=== PATIENT | male | born 1945 | race Caucasian/White ===

== ENCOUNTER 2018-01-08 01:25 | Emergency (ER) | payer OTHER ==
--- OUTSIDE RECORDS SUMMARY | 2018-01-08 01:29 | XMS REPORT | Clinical Summary ---
:1945 Author Organization [facility] Address [address] [place] [address] Care Team Providers Name Role Phone Kayla Chappell MD Primary Care Provider Allergies Active Allergy Reactions Severity Noted Date Comments Codeine Other (See Comments) 10/17/2016 Confusion, disorientation Current Medications Prescription Sig. Disp. Refills Start End Date Status Date melatonin 10 mg Take 1 capsule by Active capsule mouth nightly. etodolac (LODINE) Take 400 mg by Active 200 MG capsule mouth 2 (two) times a day. baclofen (LIORESAL) Take 20 mg by Active 20 MG tablet mouth 3 (three) times a day. oxybutynin Take 5 mg by Active (DITROPAN) 5 MG mouth 2 (two) tablet times a day. carvedilol (COREG) Take 12.5 mg by Active 12.5 MG tablet mouth 2 (two) times a day with meals. albuterol sulfate Inhale 2 puffs as Active 90 mcg/actuation needed. aerosol powdr breath activated lovastatin Take 40 mg by Active (MEVACOR) 40 MG mouth nightly. tablet budesonide-formoter Inhale 2 puffs 2 Active ol (SYMBICORT) (two) times a 160-4.5 day. mcg/actuation inhaler riluzole (RILUTEK) Take 50 mg by Active 50 mg tablet mouth every 12 (twelve) hours. POLYETHYLENE GLYCOL 1 oz. Every odd Active 3350 (MIRALAX ORAL) day gabapentin Take 300 mg by Active (NEURONTIN) 300 mg mouth 2 (two) capsule times a day. lidocaine Place 1-3 patches Active (LIDODERM) 5 % on the skin daily as needed for mild pain. Remove & Discard patch within 12 hours or as directed by DOCOSAHEXANOIC Take 1,000 mg by Active ACID/EPA (FISH OIL mouth daily. ORAL) amLODIPine Take 10 mg by Active (NORVASC) 10 mg mouth daily. tablet therapeutic Take 1 tablet by Active multivitamin mouth daily. (THERAGRAN) tablet folic acid Take 800 mcg by Active (FOLVITE) 800 MCG mouth 2 (two) tablet times a day. cyanocobalamin Take 1,000 mcg by Active (vitamin B-12) 1000 mouth daily. MCG tablet NAPROXEN Take 1 tablet by Active SODIUM/PSEUDOEPHEDR mouth nightly. IN (ALEVE-D SINUS AND COLD ORAL) omeprazole Take 20 mg by Active (PriLOSEC) 20 MG mouth daily. capsule VITAMIN B COMPLEX Take 1 tablet by Active (B COMPLEX ORAL) mouth daily. cholecalciferol, Take 1 tablet by Active vitamin D3, mouth daily. (VITAMIN D3) 5,000 unit tablet vitamin E 1000 UNIT Take 1,000 Units Active capsule by mouth 2 (two) times a day. ascorbic acid, Take 1,000 mg by Active vitamin C, (vitamin mouth 2 (two) C) 1000 MG tablet times a day. baclofen (LIORESAL) Take 20 mg by 03/10/20 Discontinued 20 MG tablet mouth 3 (three) 17 times a day. oxybutynin Take 5 mg by 03/10/20 Discontinued (DITROPAN) 5 MG mouth 2 (two) 17 tablet times a day. carvedilol (COREG) Take 6.25 mg by 03/10/20 Discontinued 6.25 MG tablet mouth 2 (two) 17 times a day with meals. albuterol (PROAIR Inhale 2 puffs 03/10/20 Discontinued HFA,PROVENTIL every 4 (four) 17 HFA,VENTOLIN HFA) hours as needed 90 mcg/actuation for wheezing or inhaler shortness of breath. lovastatin Take 40 mg by 03/10/20 Discontinued (MEVACOR) 40 MG mouth daily. 17 tablet budesonide-formoter Inhale 2 puffs 2 03/10/20 Discontinued ol (SYMBICORT) (two) times a 17 160-4.5 day. mcg/actuation inhaler riluzole (RILUTEK) Take 50 mg by 03/10/20 Discontinued 50 mg tablet mouth every 12 17 (twelve) hours. polyethylene glycol Take 17 g by 03/10/20 Discontinued (MIRALAX) 17 gram mouth every other 17 packet day. esomeprazole Take 1 capsule by 03/10/20 Discontinued magnesium 22.3 mg mouth daily. 17 capsule,delayed release(DR/EC) omega Take 1 capsule by 03/10/20 Discontinued [id number] oil mouth daily. 17 (FISH OIL) 1,000 mg (120 mg-180 mg) capsule multivitamin Take 1 tablet by 03/10/20 Discontinued (THERAGRAN) tablet mouth daily. 17 folic acid Take 800 mcg by 03/10/20 Discontinued (FOLVITE) 800 MCG mouth 2 (two) 17 tablet times a day. GLUC STOVER/CHONDRO STOVER Take 1 tablet by 03/10/20 Discontinued A/VIT C/MN mouth daily. 17 (GLUCOSAMINE 1500 COMPLEX ORAL) cyanocobalamin, Place 2,500 mcg 03/10/20 Discontinued vitamin B-12, 2,500 under the tongue 17 mcg tablet, daily. sublingual B COMPLEX WITH Take 1 tablet by 03/10/20 Discontinued VITAMIN C (SUPER mouth daily. 17 B/C ORAL) cholecalciferol, Take 1 tablet by 03/10/20 Discontinued vitamin D3, mouth daily. 17 (VITAMIN D3) 5,000 unit tablet vitamin E 1000 UNIT Take 1,000 Units 03/10/20 Discontinued capsule by mouth 2 (two) 17 times a day. ascorbic acid, Take 1,000 mg by 03/10/20 Discontinued vitamin C, (VITAMIN mouth 2 (two) 17 C) 1000 MG tablet times a day. sildenafil (VIAGRA) Take 100 mg by 03/10/20 Discontinued 100 MG tablet mouth as needed. 17 gabapentin Take 300 mg by 02/13/20 Discontinued (NEURONTIN) 300 mg mouth 2 (two) 17 capsule times a day. gabapentin Take 1 capsule 60 capsule 11 03/10/20 Discontinued (NEURONTIN) 300 mg (300 mg total) by 7 17 capsule mouth 2 (two) times a day. apixaban (ELIQUIS) Take 2.5 mg by 03/10/20 Discontinued 2.5 mg tablet mouth 2 (two) 17 times a day. carvedilol (COREG) Take 1 tablet 60 tablet 0 03/10/20 Discontinued 12.5 MG tablet (12.5 mg total) 7 17 by mouth 2 (two) times a day with meals for 30 days. riluzole (RILUTEK) Take 1 tablet (50 60 tablet 0 03/10/20 Discontinued 50 mg tablet mg total) by 7 17 mouth every 12 (twelve) hours for 30 days. gabapentin Take 1 capsule 60 capsule 0 03/10/20 Discontinued (NEURONTIN) 300 mg (300 mg total) by 7 17 capsule mouth 2 (two) times a day for 30 days. simvastatin (ZOCOR) Take 1 tablet (20 30 tablet 0 03/10/20 Discontinued 20 MG tablet mg total) by 7 17 mouth nightly for 30 days. albuterol (ACCUNEB) Take 3 mL (2.5 mg 75 mL 12 03/10/20 Discontinued 2.5 mg /3 mL (0.083 total) by 7 17 %) nebulizer nebulization solution every 4 (four) hours as needed for wheezing or shortness of breath for up to 30 days. fluticasone-vilante Inhale 1 30 each 0 03/10/20 Discontinued rol (BREO ELLIPTA) inhalations once 17 200-25 mcg/dose daily for 30 blister with device days. powder for inhalation amLODIPine Take 1 tablet (10 30 tablet 0 03/10/20 Discontinued (NORVASC) 10 mg mg total) by 7 17 tablet mouth daily for 30 days. folic acid Take 1 tablet 30 tablet 0 03/10/20 Discontinued (FOLVITE) 800 MCG (800 mcg total) 7 17 tablet by mouth daily for 30 days. docusate sodium Take 1 capsule 60 capsule 0 03/10/20 Discontinued (COLACE) 100 MG (100 mg total) by 7 17 capsule mouth 2 (two) times a day for 30 days. polyethylene glycol Take 17 g by 15 packet 0 04/08/20 (MIRALAX) 17 gram mouth every other 7 17 packet day for 30 days. senna (SENOKOT) 8.6 Take 2 tablets by 60 tablet 0 03/10/20 Discontinued mg tablet mouth daily with 7 17 lunch for 30 days. omega-3 acid ethyl Take 1 capsule (1 30 capsule 0 04/08/20 esters (LOVAZA) 1 g total) by mouth 7 17 gram capsule daily for 30 days. B-complex with Take 1 tablet by 30 tablet 0 04/08/20 vitamin C (ALLBEE mouth daily for 12 29 C-800) tablet 30 days. multivitamin Take 1 tablet by 30 tablet 0 04/08/20 (THERAGRAN) tablet mouth daily for 17 30 days. pantoprazole Take 40 mg by 1200 mg 0 03/10/20 Discontinued (PROTONIX) 40 mg mouth daily for [address] for 30 days. susp in packet baclofen (LIORESAL) Take 1 tablet (20 90 tablet 0 04/08/20 20 MG tablet mg total) by 12 29 mouth 3 (three) times a day for 30 days. oxybutynin Take 1 tablet (5 60 tablet 0 03/10/20 Discontinued (DITROPAN) 5 MG mg total) by 7 17 tablet mouth 2 (two) times a day for 30 days. cyanocobalamin, Place 1 tablet 30 tablet 0 04/08/20 vitamin B-12, 2,500 (2,500 mcg total) 7 17 mcg tablet, under the tongue sublingual daily for 30 days. ascorbic acid, Take 1 tablet 60 tablet 0 04/08/20 vitamin C, (VITAMIN (1,000 mg total) 12 29 C) 1000 MG tablet by mouth 2 (two) times a day for 30 days. cholecalciferol, Take 1 capsule 30 capsule 0 04/08/20 vitamin D3, (2,000 Units 12 29 (VITAMIN D3) 2,000 total) by mouth unit capsule daily for 30 capsule days. vitamin E 1000 UNIT Take 1 capsule 60 capsule 0 04/08/20 capsule (1,000 Units 12 29 total) by mouth 2 (two) times a day for 30 days. albuterol (PROAIR Inhale 2 puffs 18 g 11 04/09/20 HFA,PROVENTIL every 4 (four) 7 17 HFA,VENTOLIN HFA) hours as needed 90 mcg/actuation for wheezing or inhaler shortness of breath for up to 30 days. apixaban (ELIQUIS) Take 1 tablet 60 tablet 0 04/12/20 2.5 mg tablet (2.5 mg total) by 7 17 mouth 2 (two) times a day for 30 days. carvedilol (COREG) Take 1 tablet 60 tablet 0 04/09/20 12.5 MG tablet (12.5 mg total) 7 17 by mouth 2 (two) times a day with meals for 30 days. riluzole (RILUTEK) Take 1 tablet (50 60 tablet 0 04/09/20 50 mg tablet mg total) by 7 17 mouth every 12 (twelve) hours for 30 days. gabapentin Take 1 capsule 60 capsule 0 04/09/20 (NEURONTIN) 300 mg (300 mg total) by 7 17 capsule mouth 2 (two) times a day for 30 days. simvastatin (ZOCOR) Take 1 tablet (20 30 tablet 0 04/09/20 20 MG tablet mg total) by 7 17 mouth nightly for 30 days. fluticasone-vilante Inhale 1 30 each 0 04/09/20 rol (BREO ELLIPTA) inhalations once 7 17 200-25 mcg/dose daily for 30 blister with device days. powder for inhalation amLODIPine Take 1 tablet (10 30 tablet 0 04/09/20 (NORVASC) 10 mg mg total) by 7 17 tablet mouth daily for 30 days. folic acid Take 1 tablet 30 tablet 0 04/09/20 (FOLVITE) 800 MCG (800 mcg total) 7 17 tablet by mouth daily for 30 days. docusate sodium Take 1 capsule 60 capsule 0 04/09/20 (COLACE) 100 MG (100 mg total) by 7 17 capsule mouth 2 (two) times a day for 30 days. senna (SENOKOT) 8.6 Take 2 tablets by 60 tablet 0 04/09/20 mg tablet mouth daily with 7 17 lunch for 30 days. pantoprazole Take 40 mg by 1200 mg 0 04/09/20 (PROTONIX) 40 mg mouth daily for [address] for 30 days. susp in packet oxybutynin Take 1 tablet (5 60 tablet 0 04/09/20 (DITROPAN) 5 MG mg total) by 7 17 tablet mouth 2 (two) times a day for 30 days. levoFLOXacin Take 1 tablet 3 tablet 0 10/06/19 (LEVAQUIN) 750 MG (750 mg total) by 8 18 tablet mouth daily for 3 days. Active Problems Problem Noted Date Pneumonia of left lung due to infectious organism 09/27/2017 Stroke 02/25/2017 ALS (amyotrophic lateral sclerosis) 02/25/2017 Cerebrovascular accident (CVA) 02/20/2017 Chronic respiratory insufficiency 10/06/2016 Overview: On AVAPs Diaphragm paralysis 10/06/2016 Acute bilateral low back pain without sciatica 09/19/2016 Disorientation 09/16/2016 Generalized weakness 09/15/2016 Amyotrophic lateral sclerosis 03/20/2016 Encounters Date Type Specialty Care Team Description Procedure Pass Gastroenterology 8 Hospital Encounter Access Angella Rojas MD Anesthesia Event Gastroenterology Dhother, 8 Partha Garvin MD Telephone Neurology Angella Brandon RN Documentation Neurology Ta, medicine 8 Kayla Escobedo MD Telephone Neurology Angella Brandon RN Lab Lab Marciano Stuart ALS (amyotrophic 8 HMD Susan lateral sclerosis) Multidisciplinary Neurology Ta ALS (amyotrophic lateral sclerosis); 8 Visit Kayla Escobedo MD Chronic respiratory insufficiency Sobia Euceda RN Orders Only Neurology JACI Euceda (amyotrophic Angella Ramsay RN lateral sclerosis) (Primary Dx) Telephone Neurology Angella Brandon RN Patient Outreach Quality Stefany Pettit RN Patient Outreach Quality Angella Bernal RN Hospital Encounter General Internal Boyareddigari, Pneumonia of left lung due to infectious organism, unspecified part of lung (Primary Dx); 8 - Medicine Willy Sadler, Shortness of breath; ALS (amyotrophic lateral sclerosis) 8 Conor Stoll MD Telephone Neurology Roma, 8 KHALIF Stapleton Telephone Neurology Roma, 8 KHALIF Stapleton Lab Lab Marciano Stuart Amyotrophic lateral 8 MD Lamont sclerosis Multidisciplinary Neurology Rahat Chester Cerebrovascular accident (CVA) due to other mechanism (Primary Dx); 8 Visit MD Mookie Chronic respiratory insufficiency; Marciano Stuart Amyotrophic lateral sclerosis; MD Lamont Generalized weakness; Toennis, Diaphragm paralysis KHALIF Ramsay Orders Only Neurology Toecharlee, Amyotrophic lateral 7 KHALIF Ramsay sclerosis (Primary Dx) Telephone Neurology Roma, 7 KHALIF Stapleton Telephone Neurology Roma, 7 KHALIF Stapleton Telephone Neurology [place], 7 KHALIF Stapleton Patient Outreach Quality Ирина Gomez RN Hospital Encounter Rehabilitation [facility]ad[facility] De La Fuente Acute bilateral low Ирина James MD back pain without Destiney Marshall sciatica (Primary 7 DMD Susan Dx) Hospital Encounter General Internal Rehrer, [place] Cerebrovascular accident (CVA), unspecified mechanism (Primary Dx); 7 - Medicine Mitch, Respiratory insufficiency; Kylah Gomez Amyotrophic lateral sclerosis Ирина Toth MD Procedure Pass General Internal 7 Medicine Telephone Neurology Ирина Euceda RN Orders Only Neurology ChanelnnИрина linda RN Orders Only Neurology Toennis, Amyotrophic lateral 7 KHALIF Ramsay sclerosis (Primary Dx) after 01/07/2017 Immunizations Name Dates Previously Given Next Due FLUCELVAX QUAD PF (0.5mL syringe) 02/23/2017 Family History Medical History Relation Name Comments Suicidality Brother committed suicide at 52 Cancer Mother skin cancer complications in her 70's Diabetes Mother Relation Name Status Comments Brother Father (Age 58) family history unkown Mother (Age 75) Social History Tobacco Use Types Packs/Day Years Used Date Former Smoker Cigarettes 1 20 1966 - 1986 Smokeless Tobacco: Never Used Alcohol Use Drinks/Week oz/Week Comments Yes 2-3 Glasses of wine 2.4 - 3.6 2-3 Cans of beer Sex Assigned at Date Recorded Not on file Last Filed Vital Signs Vital Sign Reading Time Taken Blood Pressure 120/80 10/16/2017 8:57 AM CDT Pulse 64 10/16/2017 8:57 AM CDT Temperature 36.4 C (97.5 F) 10/16/2017 8:57 AM CDT Respiratory Rate 12 10/16/2017 8:57 AM CDT Oxygen Saturation 94% 10/01/2017 11:35 AM CDT Inhaled Oxygen Concentration - - Weight 78.3 kg (172 lb 9.6 oz) 06/19/2017 9:22 AM HEEL DIPPER Height 177.8 cm (5' 10") 10/16/2017 8:57 AM CDT Body Mass Index 24.77 06/19/2017 9:22 AM HEEL DIPPER Plan of Treatment Date Type Specialty Care Team Description 02/19/2018 Multidisciplinary Visit Neurology Sobia Euceda, KHALIF Health Maintenance Due Date Last Done Comments COLON CANCER SCREENING 1995 SHINGRIX VACCINE (#1) 1995 ZOSTER VACCINE 2005 PNEUMOCOCCAL POLYSACCHARIDE VACCINE AGE 65 2010 AND OVER PNEUMOCOCCAL-13 2010 INFLUENZA VACCINE 01/13/2018 02/23/2017, 04/15/2015 Procedures Procedure Name Priority Date/Time Associated Comments Diagnosis HEPATIC FUNCTION PANEL Routine 10/16/2017 7:30 ALS (amyotrophic Results for this AM CDT lateral sclerosis) procedure are in the results section. XR CHEST 1 VW PORTABLE Routine 09/30/2017 3:57 Results for this PM CDT procedure are in the results section. XR ABDOMEN 1 VW Routine 09/29/2017 8:22 Results for this PM CDT procedure are in the results section. HC COMPLETE BLD COUNT Routine 09/29/2017 5:20 Results for this W/AUTO DIFF AM CDT procedure are in the results section. ESTIMATED GFR Routine 09/29/2017 4:00 Results for this AM CDT procedure are in the results section. BASIC METABOLIC PANEL Routine 09/29/2017 4:00 Results for this AM CDT procedure are in the results section. US DUPLEX VENOUS LOWER Routine 09/28/2017 10:45 Results for this EXTREMITY BILATERAL AM CDT procedure are in the results section. URINALYSIS SCREEN AND STAT 09/27/2017 10:50 Results for this MICROSCOPY, WITH REFLEX PM CDT procedure are in TO CULTURE the results section. URINE CULTURE STAT 09/27/2017 10:50 Results for this PM CDT procedure are in the results section. RESPIRATORY PATHOGEN Routine 09/27/2017 4:25 Results for this PANEL PM CDT procedure are in the results section. TROPONIN Timed 09/27/2017 3:30 Results for this PM CDT procedure are in the results section. LACTIC ACID LEVEL, Timed 09/27/2017 3:30 Results for this SEPSIS - NOW AND REPEAT PM CDT procedure are in 2X EVERY 3 HOURS the results section. BLOOD CULTURE, AEROBIC Routine 09/27/2017 1:45 Results for this & ANAEROBIC PM CDT procedure are in the results section. BLOOD CULTURE, AEROBIC Routine 09/27/2017 1:40 Results for this & ANAEROBIC PM CDT procedure are in the results section. CT ABDOMEN PELVIS W STAT 09/27/2017 1:30 Results for this CONTRAST PM CDT procedure are in the results section. XR ABDOMEN 1 VW STAT 09/27/2017 12:18 Results for this PORTABLE PM CDT procedure are in the results section. XR CHEST 1 VW PORTABLE STAT 09/27/2017 12:17 Results for this PM CDT procedure are in the results section. NE CRITICAL CARE, E/M Routine 09/27/2017 12:01 Results for this 30-74 MINUTES PM CDT procedure are in the results section. TROPONIN STAT 09/27/2017 11:07 Results for this AM CDT procedure are in the results section. B NATRIURETIC PEPTIDE STAT 09/27/2017 11:07 Results for this AM CDT procedure are in the results section. ESTIMATED GFR STAT 09/27/2017 11:07 Results for this AM CDT procedure are in the results section. LACTIC ACID LEVEL, STAT 09/27/2017 11:07 Results for this SEPSIS - NOW AND REPEAT AM CDT procedure are in 2X EVERY 3 HOURS the results section. LIPASE LEVEL STAT 09/27/2017 11:07 Results for this AM CDT procedure are in the results section. COMPREHENSIVE METABOLIC STAT 09/27/2017 11:07 Results for this PANEL AM CDT procedure are in the results section. HC COMPLETE BLD COUNT STAT 09/27/2017 11:07 Results for this W/AUTO DIFF AM CDT procedure are in the results section. HEPATIC FUNCTION PANEL Routine 06/19/2017 8:28 Amyotrophic lateral Results for this AM HEEL DIPPER sclerosis procedure are in the results section. HC COMPLETE BLD COUNT Routine 06/19/2017 8:28 Amyotrophic lateral Results for this W/AUTO DIFF AM HEEL DIPPER sclerosis procedure are in the results section. ESTIMATED GFR Routine 03/01/2017 4:00 Results for this AM CDT procedure are in the results section. BASIC METABOLIC PANEL Routine 03/01/2017 4:00 Results for this AM CDT procedure are in the results section. ESTIMATED GFR Routine 02/28/2017 4:50 Results for this AM CDT procedure are in the results section. HC COMPLETE BLD COUNT Routine 02/28/2017 4:50 Results for this W/AUTO DIFF AM CDT procedure are in the results section. BASIC METABOLIC PANEL Routine 02/28/2017 4:50 Results for this AM CDT procedure are in the results section. POC GLUCOSE Routine 02/27/2017 6:52 Results for this AM CDT procedure are in the results section. POC GLUCOSE Routine 02/26/2017 8:44 Results for this PM CDT procedure are in the results section. POC GLUCOSE Routine 02/26/2017 5:14 Results for this PM CDT procedure are in the results section. POC GLUCOSE Routine 02/26/2017 11:20 Results for this AM CDT procedure are in the results section. URINALYSIS, AUTOMATED Routine 02/26/2017 6:45 Results for this WITH MICROSCOPY AM CDT procedure are in the results section. HEMOGLOBIN A1C Routine 02/26/2017 6:00 Results for this AM CDT procedure are in the results section. HC COMPLETE BLD COUNT Routine 02/26/2017 6:00 Results for this W/AUTO DIFF AM CDT procedure are in the results section. ESTIMATED GFR Routine 02/25/2017 7:17 Results for this PM CDT procedure are in the results section. PREALBUMIN LEVEL Routine 02/25/2017 7:17 Results for this PM CDT procedure are in the results section. PHOSPHORUS LEVEL Routine 02/25/2017 7:17 Results for this PM CDT procedure are in the results section. MAGNESIUM LEVEL Routine 02/25/2017 7:17 Results for this PM CDT procedure are in the results section. COMPREHENSIVE METABOLIC Routine 02/25/2017 7:17 Results for this PANEL PM CDT procedure are in the results section. POC GLUCOSE Routine 02/23/2017 4:53 Results for this PM CDT procedure are in the results section. POC GLUCOSE Routine 02/23/2017 12:23 Results for this PM CDT procedure are in the results section. POC GLUCOSE Routine 02/23/2017 8:06 Results for this AM CDT procedure are in the results section. POC GLUCOSE Routine 02/23/2017 5:00 Results for this AM CDT procedure are in the results section. ESTIMATED GFR Routine 02/23/2017 4:00 Results for this AM CDT procedure are in the results section. BASIC METABOLIC PANEL Routine 02/23/2017 4:00 Results for this AM CDT procedure are in the results section. HC COMPLETE BLD COUNT Routine 02/23/2017 3:45 Results for this W/AUTO DIFF AM CDT procedure are in the results section. POC GLUCOSE Routine 02/23/2017 12:41 Results for this AM CDT procedure are in the results section. POC GLUCOSE Routine 02/22/2017 8:23 Results for this PM CDT procedure are in the results section. POC GLUCOSE Routine 02/22/2017 4:27 Results for this PM CDT procedure are in the results section. POC GLUCOSE Routine 02/22/2017 12:04 Results for this PM CDT procedure are in the results section. POC GLUCOSE Routine 02/22/2017 8:28 Results for this AM CDT procedure are in the results section. POC GLUCOSE Routine 02/22/2017 4:13 Results for this AM CDT procedure are in the results section. ESTIMATED GFR Routine 02/22/2017 3:28 Results for this AM CDT procedure are in the results section. BASIC METABOLIC PANEL Routine 02/22/2017 3:28 Results for this AM CDT procedure are in the results section. CBC WITH PLATELET AND Routine 02/22/2017 3:10 Results for this DIFFERENTIAL AM CDT procedure are in the results section. POC GLUCOSE Routine 02/22/2017 12:14 Results for this AM CDT procedure are in the results section. POC GLUCOSE Routine 02/21/2017 8:23 Results for this PM CDT procedure are in the results section. MRI BRAIN W WO CONTRAST STAT 02/21/2017 6:47 Results for this PM CDT procedure are in the results section. CT HEAD WO CONTRAST STAT 02/21/2017 1:49 Results for this PM CDT procedure are in the results section. ECG ED PRELIMINARY Routine 02/21/2017 1:46 Results for this INTERPRETATION PM CDT procedure are in the results section. NE CRITICAL CARE, E/M Routine 02/21/2017 1:46 Results for this 30-74 MINUTES PM CDT procedure are in the results section. VITAMIN B12 LEVEL STAT 02/21/2017 10:14 Results for this AM CDT procedure are in the results section. LIPID PANEL STAT 02/21/2017 10:14 Results for this AM CDT procedure are in the results section. HOMOCYSTINE, PLASMA STAT 02/21/2017 10:14 Results for this AM CDT procedure are in the results section. HIV 1, 2 ANTIBODY STAT 02/21/2017 10:14 Results for this AM CDT procedure are in the results section. THYROID STIMULATING STAT 02/21/2017 10:14 Results for this HORMONE AM CDT procedure are in the results section. SEDIMENTATION RATE STAT 02/21/2017 10:14 Results for this AM CDT procedure are in the results section. RHEUMATOID FACTOR STAT 02/21/2017 10:14 Results for this AM CDT procedure are in the results section. C-REACTIVE PROTEIN STAT 02/21/2017 10:14 Results for this AM CDT procedure are in the results section. ESTIMATED GFR Routine 02/21/2017 5:14 Results for this AM CDT procedure are in the results section. BASIC METABOLIC PANEL Routine 02/21/2017 5:14 Results for this AM CDT procedure are in the results section. HC COMPLETE BLD COUNT Routine 02/21/2017 5:14 Results for this W/AUTO DIFF AM CDT procedure are in the results section. LACTIC ACID LEVEL Timed 02/20/2017 10:30 Results for this PM CDT procedure are in the results section. TROPONIN Timed 02/20/2017 10:30 Results for this PM CDT procedure are in the results section. CT ANGIOGRAM HEAD W WO STAT 02/20/2017 8:31 Results for this CONTRAST PM CDT procedure are in the results section. CT ANGIOGRAM NECK W WO STAT 02/20/2017 8:30 Results for this CONTRAST PM CDT procedure are in the results section. CT HEAD WO CONTRAST STAT 02/20/2017 5:06 Results for this PM CDT procedure are in the results section. ARTERIAL BLOOD GAS STAT 02/20/2017 4:25 Results for this PM CDT procedure are in the results section. XR CHEST 1 VW PORTABLE STAT 02/20/2017 4:22 Results for this PM CDT procedure are in the results section. BLOOD CULTURE, AEROBIC Routine 02/20/2017 3:40 Results for this & ANAEROBIC PM CDT procedure are in the results section. ECG 12-LEAD STAT 02/20/2017 3:23 Results for this PM CDT procedure are in the results section. ESTIMATED GFR STAT 02/20/2017 3:06 Results for this PM CDT procedure are in the results section. B NATRIURETIC PEPTIDE STAT 02/20/2017 3:06 Results for this PM CDT procedure are in the results section. TROPONIN STAT 02/20/2017 3:06 Results for this PM CDT procedure are in the results section. CREATINE KINASE, TOTAL STAT 02/20/2017 3:06 Results for this (CPK) PM CDT procedure are in the results section. LACTIC ACID LEVEL STAT 02/20/2017 3:06 Results for this PM CDT procedure are in the results section. MAGNESIUM LEVEL STAT 02/20/2017 3:06 Results for this PM CDT procedure are in the results section. PHOSPHORUS LEVEL STAT 02/20/2017 3:06 Results for this PM CDT procedure are in the results section. HEPATIC FUNCTION PANEL STAT 02/20/2017 3:06 Results for this PM CDT procedure are in the results section. BASIC METABOLIC PANEL STAT 02/20/2017 3:06 Results for this PM CDT procedure are in the results section. PARTIAL THROMBOPLASTIN STAT 02/20/2017 3:06 Results for this TIME (PTT) PM CDT procedure are in the results section. PROTHROMBIN TIME WITH STAT 02/20/2017 3:06 Results for this INR PM CDT procedure are in the results section. HC COMPLETE BLD COUNT STAT 02/20/2017 3:06 Results for this W/AUTO DIFF PM CDT procedure are in the results section. BLOOD CULTURE, AEROBIC Routine 02/20/2017 3:06 Results for this & ANAEROBIC PM CDT procedure are in the results section. URINALYSIS SCREEN AND STAT 02/20/2017 2:54 Results for this MICROSCOPY, WITH REFLEX PM CDT procedure are in TO CULTURE the results section. URINE CULTURE STAT 02/20/2017 1:15 Results for this PM CDT procedure are in the results section. after 01/07/2017 Results Hepatic function panel (10/16/2017 7:30 AM)Only the most recent of3 resultswithin the time period is included. Albumin 3.9 3.5 - 5.0 g/dL [facility] DEPARTMENT OF PATHOLOGY AND GENOMIC MEDICINE Total bilirubin 0.8 0.0 - 1.2 mg/dL [facility] DEPARTMENT OF PATHOLOGY AND GENOMIC MEDICINE Bilirubin direct <0.2 0.0 - 0.3 mg/dL [facility] DEPARTMENT OF PATHOLOGY AND GENOMIC MEDICINE Alkaline phosphatase 51 40 - 129 U/L [facility] DEPARTMENT OF PATHOLOGY AND GENOMIC MEDICINE Protein 7.6 6.3 - 8.3 g/dL [facility] DEPARTMENT OF Comment: PATHOLOGY AND GENOMIC [place] 4.6-7.0 g/dL MEDICINE 1 week 4.4-7.6 g/dL 7 months-1year5.1-7.3 g/dL 1-2 years5.6-7.5 g/dL >3 years6.0-8.0 g/dL 18-150 6.3-8.3 g/dL ALT 22 5 - 50 U/L [facility] DEPARTMENT OF PATHOLOGY AND GENOMIC MEDICINE AST 26 10 - 50 U/L [facility] DEPARTMENT OF PATHOLOGY AND GENOMIC MEDICINE Specimen Plasma specimen Performing Organization Address City/[facility] Phone Number [facility] DEPARTMENT OF PATHOLOGY AND [address] [place] [address] XR Chest 1 Vw Portable (09/30/2017 3:57 PM)Only the most recent of3 resultswithin the time period is included. Narrative Performed At EXAMINATION:XR CHEST 1 VW PORTABLE [facility] CLINICAL HISTORY:pneumonia COMPARISON:September 27, 2017 IMPRESSION: Basilar subsegmental atelectasis similar to prior. Right hemidiaphragm is mildly elevated. No confluent consolidation, significant pleural effusion, or pneumothorax. Stable cardiomediastinal silhouette. No significant change. [id number] Procedure Note Interface, Radiology Results Incoming - 09/30/2017 4:07 PM CDT EXAMINATION: XR CHEST 1 VW PORTABLE CLINICAL HISTORY: pneumonia COMPARISON: September 27, 2017 IMPRESSION: Basilar subsegmental atelectasis similar to prior. Right hemidiaphragm is mildly elevated. No confluent consolidation, significant pleural effusion, or pneumothorax. Stable cardiomediastinal silhouette. No significant change. [id number] Performing Organization Address City/State/Zipcode Phone Number [facility] [address] [place] [address] XR Abdomen 1 Vw (09/29/2017 8:22 PM) Narrative Performed At EXAMINATION:XR ABDOMEN 1 VW [facility] CLINICAL HISTORY:Bowel ileus COMPARISON:September 27, 2017 IMPRESSION: Improved/resolved colonic distention. Minimal nonspecific gaseous distention of small bowel. Findings suggest improving ileus. No evidence of pneumoperitoneum. Moderate to large stool burden. [facility]-[id number] Procedure Note Hm Interface, Radiology Results Incoming - 09/29/2017 9:05 PM CDT EXAMINATION: XR ABDOMEN 1 VW CLINICAL HISTORY: Bowel ileus COMPARISON: September 27, 2017 IMPRESSION: Improved/resolved colonic distention. Minimal nonspecific gaseous distention of small bowel. Findings suggest improving ileus. No evidence of pneumoperitoneum. Moderate to large stool burden. [facility]-[id number] Performing Organization Address City/State/Zipcode Phone Number [facility] [address] [place] [address] CBC with platelet and differential (09/29/2017 5:20 AM)Only the most recent of9 resultswithin the time period is included. WBC 9.88 4.50 - 11.00 k/uL [facility] DEPARTMENT OF PATHOLOGY AND GENOMIC MEDICINE RBC 3.15 (L) 4.40 - 6.00 m/uL [facility] DEPARTMENT OF PATHOLOGY AND GENOMIC MEDICINE HGB 9.9 (L) 14.0 - 18.0 g/dL [facility] DEPARTMENT OF PATHOLOGY AND GENOMIC MEDICINE HCT 31.8 (L) 41.0 - 51.0 % [facility] DEPARTMENT OF PATHOLOGY AND GENOMIC MEDICINE MCV 101.0 (H) 82.0 - 100.0 fL [facility] DEPARTMENT OF PATHOLOGY AND GENOMIC MEDICINE MCH 31.4 27.0 - 34.0 pg [facility] DEPARTMENT OF PATHOLOGY AND GENOMIC MEDICINE MCHC 31.1 31.0 - 37.0 g/dL [facility] DEPARTMENT OF PATHOLOGY AND GENOMIC MEDICINE RDW - SD 45.0 37.0 - 55.0 fL [facility] DEPARTMENT OF PATHOLOGY AND GENOMIC MEDICINE MPV 11.2 8.8 - 13.2 fL [facility] DEPARTMENT OF PATHOLOGY AND GENOMIC MEDICINE Platelet count 139 (L) 150 - 400 k/uL [facility] DEPARTMENT OF PATHOLOGY AND GENOMIC MEDICINE Nucleated RBC 0.00 /100 WBC [facility] DEPARTMENT OF PATHOLOGY AND GENOMIC MEDICINE Neutrophils 77.1 (H) 39.0 - 69.0 % [facility] DEPARTMENT OF PATHOLOGY AND GENOMIC MEDICINE Lymphocytes 10.7 (L) 25.0 - 45.0 % [facility] DEPARTMENT OF PATHOLOGY AND GENOMIC MEDICINE Monocytes 9.5 0.0 - 10.0 % [facility] DEPARTMENT OF PATHOLOGY AND GENOMIC MEDICINE Eosinophils 2.1 0.0 - 5.0 % [facility] DEPARTMENT OF PATHOLOGY AND GENOMIC MEDICINE Basophils 0.2 0.0 - 1.0 % [facility] DEPARTMENT OF PATHOLOGY AND GENOMIC MEDICINE Immature granulocytes 0.4Comment: 0.0 - 1.0 % [facility] DEPARTMENT OF "Immature PATHOLOGY AND GENOMIC granulocytes" MEDICINE (promyelocytes, myelocytes, metamyelocytes) Specimen Blood Performing Organization Address City/State/Zipcode Phone Number [facility] DEPARTMENT OF PATHOLOGY AND [address] [place] [phone] [facility] Estimated GFR (09/29/2017 4:00 AM)Only the most recent of9 resultswithin the time period is included. GFR Non Af Amer >90 mL/min/1.73 m2 [facility] DEPARTMENT OF PATHOLOGY AND GENOMIC MEDICINE GFR Af Amer >90 mL/min/1.73 m2 [facility] DEPARTMENT OF Comment: PATHOLOGY AND GENOMIC Chronic kidney disease: <60 mL/min/1.73m2 MEDICINE Kidney failure: <15 mL/min/1.73m2 The estimated GFR is calculated from the IDMS-traceable Modification of Diet in Renal Disease Equation. The accuracy of the calculation is poor when the creatinine is normal. Calculated values >90 mL/min/1.73m2 are not reported. This equation has not been validated in children (<18 years), women, the elderly (>70 years), or ethnic groups other than Caucasians and Americans. Specimen Plasma specimen Performing Organization Address City/State/Zipcode Phone Number [facility] OF PATHOLOGY AND [address] [place] [address] Arrively Basic metabolic panel (09/29/2017 4:00 AM)Only the most recent of7 resultswithin the time period is included. Sodium 142 135 - 148 mEq/L [facility] DEPARTMENT OF PATHOLOGY AND GENOMIC MEDICINE Potassium 3.7 3.5 - 5.0 mEq/L [facility] DEPARTMENT OF PATHOLOGY AND GENOMIC MEDICINE Chloride 105 98 - 112 mEq/L [facility] DEPARTMENT OF PATHOLOGY AND GENOMIC MEDICINE CO2 26 24 - 31 mEq/L [facility] DEPARTMENT OF PATHOLOGY AND GENOMIC MEDICINE Anion gap 11 7 - 15 mEq/L [facility] DEPARTMENT OF PATHOLOGY Comment: AND [facility] MEDICINE Starting from September , anion gap calculation no longer incorporates potassium. Please note the change. BUN 19 8 - 23 mg/dL [facility] DEPARTMENT OF PATHOLOGY AND GENOMIC MEDICINE Creatinine 0.8 0.7 - 1.2 mg/dL [facility] DEPARTMENT OF PATHOLOGY AND GENOMIC MEDICINE Glucose 88 65 - 99 mg/dL [facility] DEPARTMENT OF PATHOLOGY AND GENOMIC MEDICINE Calcium 9.3 8.8 - 10.2 mg/dL [facility] DEPARTMENT OF PATHOLOGY AND GENOMIC MEDICINE Specimen Plasma specimen Performing Organization Address City/State/Zipcode Phone Number [facility] DEPARTMENT OF PATHOLOGY AND [address] Us duplex venous lower extremity (09/28/2017 10:45 AM) Narrative Performed At [facility] Vascular Ultrasound Laboratory Lower Extremity Venous Report [address] [place] [address] Pat.Name:FLORIDA RAMÍREZ [facility].ID:[id number] .Date: 09/28/2017 Refer.MD:CONOR STOLL MD Exam Time: 9:52:00 AMStudy Type:LE Venous Height:71inWeight: 172lb BSA: 1.98 m2 DOBAge:1945,72Y Sex: MALESonogrphr: Radha Welch RVT Pat. Stat.:Inpatient Room:[address] TapeVol: [place], CPT - 4: [address] Echo Event ID:[id number] Order ID:[id number] Reason for Study:Concern for DVT, Hx of ALS, Generalized weakness. Race:C SUMMARY: * Normal Reflux Criteria:< 0.5 seconds * Abnormal Reflux Criteria:> or equal to 0.5 seconds DUPLEX SCAN OBSERVATIONS Deep VeinsSuperficial Veins RightLeft RightLeft EIV Normal IncompetentGSV (prox) NormalNormal CFV Normal Normal (above knee) Femoral Normal Normal GSV (dist) Normal Normal Profunda Normal Normal (below knee) Popliteal Normal Normal PT (prox) Normal NormalSSV Normal Normal PT (dist) Normal Normal Peroneal Normal Normal RIGHT:There is normal compressibility with no evidence of echogenic material noted within the lumen of the visualized veins.Colorflow and Doppler signals are normal. LEFT:There is normal compressibility with no evidence of echogenic material noted within the lumen of the visualized veins.Colorflow and Doppler signals are normal. PRELIMINARY FINDINGS 1. Normal venous duplex exam of the lower extremities, bilaterally. 2. Venous incompetence noted in the left common femoral vein. PHYSICIAN INTERPRETATION Venous examination of the both lower extremities demonstrated no evidence of venous thrombosis in the visualized veins. Venous incompetence noted in the left common femoral vein. Signed 09/28/2017 12:00 PM Justin Smith MD, RPVI Procedure Note Interface, Radiology Results In - 09/28/2017 12:01 PM CDT V[facility] Ul[facility]ound Laboratory Lower Extremity Venous Report [address] [place] [address] Pat.Name: FLORIDA RAMÍREZ Pat.ID: [id number] .Date: 09/28/2017 Refer.MD: CONOR STOLL MD Exam Time: 9:52:00 AM Study Type:LE Venous Height: 71in Weight: 172lb BSA: 1.98 m2 Age: 9 1945,72Y Sex: MALE Sonogrphr: Radha Welch RVT Pat. Stat.:Inpatient Room: [address] Vol: SD, CPT - 4: [address] Echo Event ID:[id number] Order ID: [id number] Reason for Study:Concern for DVT, Hx of ALS, Generalized weakness. Race: C SUMMARY: * Normal Reflux Criteria: < 0.5 seconds * Abnormal Reflux Criteria: > or equal to 0.5 seconds DUPLEX SCAN OBSERVATIONS Deep Veins Superficial Veins Right Left Right Left EIV Normal Incompetent GSV (prox) Normal Normal CFV Normal Normal (above knee) Femoral Normal Normal GSV (dist) Normal Normal Profunda Normal Normal (below knee) Popliteal Normal Normal PT (prox) Normal Normal SSV Normal Normal PT (dist) Normal Normal Peroneal Normal Normal RIGHT: There is normal compressibility with no evidence of echogenic material noted within the lumen of the visualized veins.Colorflow and Doppler signals are normal. LEFT: There is normal compressibility with no evidence of echogenic material noted within the lumen of the visualized veins.Colorflow and Doppler signals are normal. PRELIMINARY FINDINGS 1. Normal venous duplex exam of the lower extremities, bilaterally. 2. Venous incompetence noted in the left common femoral vein. PHYSICIAN INTERPRETATION Venous examination of the both lower extremities demonstrated no evidence of venous thrombosis in the visualized veins. Venous incompetence noted in the left common femoral vein. Signed 09/28/2017 12:00 PM Justin Smith MD, RPVI Performing Organization Address City/State/Zipcode Phone Number [facility] [address] [place] [address] Urinalysis screen and microscopy, with reflex to culture (09/27/2017 10:50 PM) Only the most recent of2 resultswithin the time period is included. Specimen site Clean catch [facility] DEPARTMENT OF PATHOLOGY AND GENOMIC MEDICINE Color, UA Yellow [facility] DEPARTMENT OF PATHOLOGY AND GENOMIC MEDICINE Appearance, UA Clear [facility] DEPARTMENT OF PATHOLOGY AND GENOMIC MEDICINE Specific gravity, UA 1.029 1.001 - 1.035 [facility] DEPARTMENT OF PATHOLOGY AND GENOMIC MEDICINE pH, UA 5.0 5.0 - 8.5 [facility] DEPARTMENT OF PATHOLOGY AND GENOMIC MEDICINE Protein, UA Negative Negative [facility] DEPARTMENT OF PATHOLOGY AND GENOMIC MEDICINE Glucose, UA Negative Negative [facility] DEPARTMENT OF PATHOLOGY AND GENOMIC MEDICINE Ketones, UA Negative Negative [facility] DEPARTMENT OF PATHOLOGY AND GENOMIC MEDICINE Bilirubin, UA Positive@UBIL (A) Negative [facility] DEPARTMENT OF PATHOLOGY AND GENOMIC MEDICINE Blood, UA Negative Negative [facility] DEPARTMENT OF PATHOLOGY AND GENOMIC MEDICINE Nitrite, UA Negative Negative [facility] DEPARTMENT OF PATHOLOGY AND GENOMIC MEDICINE Urobilinogen, UA 4.0 (A) <2.0 [facility] DEPARTMENT OF PATHOLOGY AND GENOMIC MEDICINE Leukocyte esterase, UA Negative Negative [facility] DEPARTMENT OF PATHOLOGY AND GENOMIC MEDICINE WBC, UA 2 (H) 0 - 1 /HPF [facility] DEPARTMENT OF PATHOLOGY AND GENOMIC MEDICINE RBC, UA 1 0 - 5 /HPF [facility] DEPARTMENT OF PATHOLOGY AND GENOMIC MEDICINE Bacteria, UA None seen None seen [facility] DEPARTMENT OF PATHOLOGY AND GENOMIC MEDICINE Yeast, UA None seen [facility] DEPARTMENT OF PATHOLOGY AND GENOMIC MEDICINE Yeast with pseudohyphae, None seen [facility] DEPARTMENT OF PATHOLOGY UA AND GENOMIC MEDICINE Specimen Urine Performing Organization Address City/[facility] Phone Number [facility] DEPARTMENT OF PATHOLOGY AND [address] [place] [address] Urine culture (09/27/2017 10:50 PM)Only the most recent of2 resultswithin the time period is included. Urine culture SEE COMMENTComment: Bacteriuria [facility] DEPARTMENT OF PATHOLOGY screen negative. AND GENOMIC MEDICINE Performing Organization Address City/[facility] Phone Number [facility] DEPARTMENT OF PATHOLOGY AND [address] [place] [address] Respiratory pathogen panel (09/27/2017 4:25 PM) Respiratory pathogen Negative for all pathogens tested: [facility] DEPARTMENT OF panel Negative for Adenovirus PATHOLOGY AND GENOMIC Negative for Coronavirus HKU1 MEDICINE Negative for Coronavirus NL63 Negative for Coronavirus 229E Negative for Coronavirus OC43 Negative for Human Metapneumovirus Negative for Rhinovirus/Enterovirus Negative for Influenza A Negative for Influenza A/H1 Negative for Influenza A/H3 Negative for Influenza A/H1-2009 Negative for Influenza B Negative for Parainfluenza Virus 1 Negative for Parainfluenza Virus 2 Negative for Parainfluenza Virus 3 Negative for Parainfluenza Virus 4 Negative for Respiratory Syncytial Virus Negative for Bordetella pertussis Negative for Chlamydophila pneumoniae Negative for Mycoplasma pneumoniae This real-time PCR assay detects the presence of nucleic acids (RNA or DNA) for the respiratory pathogens listed. A result of "Not-detected" does not exclude the possibility of the presence of one or more pathogens at concentrations less than the detectable limits of the assay. Comment: Specimen Information Specimen Source: Nares Specimen Site: Not specified Specimen Nares - Not specified Performing Organization Address City/[facility]/Zipcode Phone Number [facility] DEPARTMENT OF PATHOLOGY AND [address] [place] [address] Lactic acid level, SEPSIS - Now and repeat 2x every 3 hours (09/27/2017 3:30 PM )Only the most recent of2 resultswithin the time period is included. Lactic acid 1.7 0.5 - 2.2 mmol/L [facility] DEPARTMENT OF PATHOLOGY AND GENOMIC MEDICINE Specimen Blood Performing Organization Address City/State/[facility] Cent[facility]ode Phone Number [facility] DEPARTMENT OF PATHOLOGY AND [address] [place] [phone] [facility] Troponin (09/27/2017 3:30 PM)Only the most recent of4 resultswithin the time period is included. Troponin <0.30 0.00 - 0.30 ng/mL [facility] DEPARTMENT OF PATHOLOGY Comment: AND GENOMIC MEDICINE 0.30 - 1.49 ng/mlMay indicate increased risk of acute coronary syndrome. >=1.5 ng/mlConsistent with acute myocardial infarction. The diagnostic value of a single normal or non-diagnostic result is questionable.Serial samples at 2-6 hour intervals are required to rule out acute myocardial injury. Specimen Blood Performing Organization Address City/[facility] Phone Number [facility] DEPARTMENT OF PATHOLOGY AND [address] [place] [id number] [place] [address] Blood culture, aerobic & anaerobic (09/27/2017 1:45 PM)Only the most recent of4 resultswithin the time period is included. Blood culture isolate No growth after 5 days of incubation. [facility] DEPARTMENT OF Comment: PATHOLOGY AND GENOMIC Specimen Information MEDICINE Specimen Source: Blood Specimen Site: Hand, right Specimen Blood - Hand, right Performing Organization Address City/[facility] Phone Number [facility] DEPARTMENT OF PATHOLOGY AND [address] [place] [address] CT Abdomen Pelvis W Contrast (09/27/2017 1:30 PM) Narrative Performed At EXAMINATION:CT ABDOMEN PELVIS W CONTRAST [facility] CLINICAL HISTORY: 72 yearsMale abdominal distentionpainnausea TECHNIQUE: Multiple axial images of the abdomen and pelvis were obtained following intravenous administration of iodinated contrast. Sagittal and coronal computerized reformatted images were also obtained. CT imaging was performed with iterative reconstruction techniques and/or automated exposure control to reduce radiation dose. COMPARISON:None. IMPRESSION: Abdomen: 1. Atelectatic and consolidative changes are present in both lung bases slightly greater on the right side. 2.The liver and the spleen are normal in appearance. 3.The pancreas is slightly fatty infiltrated. 4.The adrenal glands are normal in appearance. A tiny calculus in the upper pole the left kidney is present. There is no evidence of hydronephrosis involving either kidney. Pelvis: 1. Moderate amount of feces is noted throughout the colon. 2.The appendix is not definitely visualized. 3.The small bowel is slightly and diffusely dilated to the level of the cecum. 4.Moderate arthritic changes are present involving the hip joints greater on the right side. Marked arthritic changes are noted involving the lower lumbar spine. [facility]-[id number] Procedure Note Interface, Radiology Results Incoming - 09/27/2017 1:39 PM CDT EXAMINATION: CT ABDOMEN PELVIS W CONTRAST CLINICAL HISTORY: 72 yearsMale abdominal distention pain nausea TECHNIQUE: Multiple axial images of the abdomen and pelvis were obtained following intravenous administration of iodinated contrast. Sagittal and coronal computerized reformatted images were also obtained. CT imaging was performed with iterative reconstruction techniques and/or automated exposure control to reduce radiation dose. COMPARISON: None. IMPRESSION: Abdomen: 1. Atelectatic and consolidative changes are present in both lung bases slightly greater on the right side. 2. The liver and the spleen are normal in appearance. 3. The pancreas is slightly fatty infiltrated. 4. The adrenal glands are normal in appearance. A tiny calculus in the upper pole the left kidney is present. There is no evidence of hydronephrosis involving either kidney. Pelvis: 1. Moderate amount of feces is noted throughout the colon. 2. The appendix is not definitely visualized. 3. The small bowel is slightly and diffusely dilated to the level of the cecum. 4. Moderate arthritic changes are present involving the hip joints greater on the right side. Marked arthritic changes are noted involving the lower lumbar spine. [facility]-[id number] Performing Organization Address City/State/Zipcode Phone Number [facility] [address] [place] [address] XR Abdomen 1 Vw Portable (09/27/2017 12:18 PM) Narrative Performed At [facility] 1 VW PORTABLE INDICATION: ABDOMINAL PAIN COMPARISON: None. IMPRESSION: Moderate gas distention stomach and multiple loops of small and large bowel scattered throughout the abdomen, which is a nonspecific and nonobstructive pattern. Large amount stool superimposed on the sigmoid colon and rectum, suggestive of constipation. No pneumatosis, portal venous gas, pneumoperitoneum. Minimal degenerative changes lumbar spine. Minimal arthrosis bilateral hips. Rounded osseous radiodensity along the superolateral margin of the right femoral head, likely a periarticular osseous body. [facility]-[id number] Procedure Note Hm Interface, Radiology Results Incoming - 09/27/2017 12:25 PM CDT EXAM: XR ABDOMEN 1 VW PORTABLE INDICATION: ABDOMINAL PAIN COMPARISON: None. IMPRESSION: Moderate gas distention stomach and multiple loops of small and large bowel scattered throughout the abdomen, which is a nonspecific and nonobstructive pattern. Large amount stool superimposed on the sigmoid colon and rectum, suggestive of constipation. No pneumatosis, portal venous gas, pneumoperitoneum. Minimal degenerative changes lumbar spine. Minimal arthrosis bilateral hips. Rounded osseous radiodensity along the superolateral margin of the right femoral head, likely a periarticular osseous body. [id number] Performing Organization Address City/[facility]/Zipcode Phone Number [facility] [address] [place] [address] CRITICAL CARE (09/27/2017 12:01 PM) Narrative Performed At Willy Davis MD 09/29/2017 10:24 AM Critical Care Performed by: WILLY DAVIS Authorized by: WILLY DAVIS Critical care provider statement: Critical care time (minutes):30 Critical care time was exclusive of:Separately billable procedures and treating other patients and teaching time Critical care was necessary to treat or prevent imminent or life-threatening deterioration of the following conditions:Respiratory failure Critical care was time spent personally by me on the following activities:Development of treatment plan with patient or surrogate, evaluation of patient's response to treatment, examination of patient, interpretation of cardiac output measurements, obtaining history from patient or surrogate, ordering and performing treatments and interventions, ordering and review of laboratory studies, ordering and review of radiographic studies, pulse oximetry and re-evaluation of patient's condition Christ 'yes' if you are taking over critical care for this patient from another provider.: no B natriuretic peptide (09/27/2017 11:07 AM)Only the most recent of2 resultswithin the time period is included. BNP 30 0 - 100 pg/mL [facility] DEPARTMENT OF PATHOLOGY AND GENOMIC MEDICINE Performing Organization Address City/[facility]/Zipcode Phone Number [facility] DEPARTMENT OF PATHOLOGY AND [address] [place] [address] [facility] Lipase level (09/27/2017 11:07 AM) Lipase 20 13 - 60 U/L [facility] DEPARTMENT OF PATHOLOGY AND GENOMIC MEDICINE Specimen Plasma specimen Performing Organization Address City/[facility] Phone Number [facility] DEPARTMENT OF PATHOLOGY AND [address] [place] [address] GENOMIC MEDICINE Comprehensive metabolic panel (09/27/2017 11:07 AM)Only the most recent of2 resultswithin the time period is included. Sodium 140 135 - 148 mEq/L [facility] DEPARTMENT OF PATHOLOGY AND GENOMIC MEDICINE Potassium 4.9 3.5 - 5.0 mEq/L [facility] DEPARTMENT OF PATHOLOGY AND GENOMIC MEDICINE Chloride 103 98 - 112 mEq/L [facility] DEPARTMENT OF PATHOLOGY AND GENOMIC MEDICINE CO2 23 (L) 24 - 31 mEq/L [facility] DEPARTMENT OF PATHOLOGY AND GENOMIC MEDICINE Anion gap 14 7 - 15 mEq/L [facility] DEPARTMENT OF Comment: PATHOLOGY AND GENOMIC Starting from September , anion gap calculation MEDICINE no longer incorporates potassium. Please note the change. BUN 47 (H) 8 - 23 mg/dL [facility] DEPARTMENT OF PATHOLOGY AND GENOMIC MEDICINE Creatinine 0.8 0.7 - 1.2 mg/dL [facility] DEPARTMENT OF PATHOLOGY AND GENOMIC MEDICINE Glucose 114 (H) 65 - 99 mg/dL [facility] DEPARTMENT OF PATHOLOGY AND GENOMIC MEDICINE Calcium 9.6 8.8 - 10.2 mg/dL [facility] DEPARTMENT OF PATHOLOGY AND GENOMIC MEDICINE Protein 6.9 6.3 - 8.3 g/dL [facility] DEPARTMENT OF Comment: PATHOLOGY AND GENOMIC [place] 4.6-7.0 g/dL MEDICINE 1 week 4.4-7.6 g/dL 7 months-1year5.1-7.3 g/dL 1-2 years5.6-7.5 g/dL >3 years6.0-8.0 g/dL 18-150 6.3-8.3 g/dL Albumin 3.7 3.5 - 5.0 g/dL [facility] DEPARTMENT OF PATHOLOGY AND GENOMIC MEDICINE A/G ratio 1.2 0.7 - 3.8 [facility] DEPARTMENT OF PATHOLOGY AND GENOMIC MEDICINE Alkaline phosphatase 50 40 - 129 U/L [facility] DEPARTMENT OF PATHOLOGY AND GENOMIC MEDICINE AST 59 (H) 10 - 50 U/L [facility] DEPARTMENT OF PATHOLOGY AND GENOMIC MEDICINE ALT 45 5 - 50 U/L [facility] DEPARTMENT OF PATHOLOGY AND GENOMIC MEDICINE Total bilirubin 1.5 (H) 0.0 - 1.2 mg/dL [facility] DEPARTMENT OF PATHOLOGY AND GENOMIC MEDICINE Specimen Plasma specimen Performing Organization Address City/[facility]/Zipcode Phone Number [facility] DEPARTMENT OF PATHOLOGY AND [address] [place] [address] GENOMIC [facility] POC glucose (02/27/2017 6:52 AM)Only the most recent of16 resultswithin the time period is included. POC glucose 91 65 - 99 mg/dL [facility] DEPARTMENT OF PATHOLOGY AND Comment: GENOMIC MEDICINE [facility] Notified RN Meter ID: [id number] Assistant Women'S Basketball Coach: Dorian Josue Performing Organization Address [facility] Cent[facility] Phone Number [facility] DEPARTMENT OF PATHOLOGY AND [address] [place] [address] Urinalysis, automated with microscopy (02/26/2017 6:45 AM) Color, UA Brittney [facility] DEPARTMENT OF PATHOLOGY AND GENOMIC MEDICINE Appearance, UA Hazy [facility] DEPARTMENT OF PATHOLOGY AND GENOMIC MEDICINE Specific gravity, UA 1.021 1.001 - 1.035 [facility] DEPARTMENT OF PATHOLOGY AND GENOMIC MEDICINE pH, UA 5.0 5.0 - 8.5 [facility] DEPARTMENT OF PATHOLOGY AND GENOMIC MEDICINE Protein, UA Negative Negative [facility] DEPARTMENT OF PATHOLOGY AND GENOMIC MEDICINE Glucose, UA Negative Negative [facility] DEPARTMENT OF PATHOLOGY AND GENOMIC MEDICINE Ketones, UA Negative Negative [facility] DEPARTMENT OF PATHOLOGY AND GENOMIC MEDICINE Bilirubin, UA Negative Negative [facility] DEPARTMENT OF PATHOLOGY AND GENOMIC MEDICINE Blood, UA Negative Negative [facility] DEPARTMENT OF PATHOLOGY AND GENOMIC MEDICINE Nitrite, UA Positive (A) Negative [facility] DEPARTMENT OF PATHOLOGY AND GENOMIC MEDICINE Urobilinogen, UA 2.0 (A) <2.0 [facility] DEPARTMENT OF PATHOLOGY AND GENOMIC MEDICINE Leukocyte esterase, UA Negative Negative [facility] DEPARTMENT OF PATHOLOGY AND GENOMIC MEDICINE Epithelial cells, UA <1 /HPF [facility] DEPARTMENT OF PATHOLOGY AND GENOMIC MEDICINE Round epithelial cells, UA <1 0 - 1 /HPF [facility] DEPARTMENT OF PATHOLOGY AND GENOMIC MEDICINE WBC, UA 2 (H) 0 - 1 /HPF [facility] DEPARTMENT OF PATHOLOGY AND GENOMIC MEDICINE RBC, UA 5 (H) 0 - 1 /HPF [facility] DEPARTMENT OF PATHOLOGY AND GENOMIC MEDICINE Bacteria, UA Few None seen [facility] DEPARTMENT OF PATHOLOGY AND GENOMIC MEDICINE Yeast, UA None seen [facility] DEPARTMENT OF PATHOLOGY AND GENOMIC MEDICINE Yeast with pseudohyphae, UA None seen [facility] DEPARTMENT OF PATHOLOGY AND GENOMIC MEDICINE Specimen Urine Performing Organization Address City/[facility] Cent[facility] Phone Number [facility] DEPARTMENT OF PATHOLOGY AND [address] [place] [address] Hemoglobin A1c (02/26/2017 6:00 AM) Hemoglobin A1C 5.1 4.0 - 5.6 % [facility] DEPARTMENT OF PATHOLOGY Comment: AND [facility] MEDICINE HbA1c cutoffs for diagnosing diabetes: 4.0% - 5.6%=normal 5.7% - 6.4%=increased risk for diabetes (prediabetes) >=6.5%=diabetes Goals for glycemic control (ADA 2016) < 7.0%Target for non adults with diabetes. More or less stringent targets may be appropriate for individual patients. <7.5% Target for Children and adolescents with type 1 diabetes. Specimen Blood Performing Organization Address [facility] Cent[facility]ode Phone Number [facility] DEPARTMENT OF PATHOLOGY AND [address] [place] [address] Prealbumin level (02/25/2017 7:17 PM) Prealbumin 23 16 - 32 mg/dL [facility] DEPARTMENT OF PATHOLOGY AND [facility] MEDICINE Specimen Serum Performing Organization Address [facility] Phone Number [facility] DEPARTMENT OF PATHOLOGY AND [address] [place] [address] Phosphorus level (02/25/2017 7:17 PM)Only the most recent of2 resultswithin the time period is included. Phosphorus 2.7 2.4 - 4.5 mg/dL [facility] DEPARTMENT OF PATHOLOGY AND GENOMIC MEDICINE Specimen Plasma specimen Performing Organization Address [facility] Phone Number [facility] DEPARTMENT OF PATHOLOGY AND [address] [place] [address] Magnesium level (02/25/2017 7:17 PM)Only the most recent of2 resultswithin the time period is included. Magnesium 2.3 1.6 - 2.4 mg/dL [facility] DEPARTMENT OF PATHOLOGY AND GENOMIC MEDICINE Specimen Plasma specimen Performing Organization Address [facility] Cent[facility]ode Phone Number [facility] DEPARTMENT OF PATHOLOGY AND [address] [place] [address] MRI Brain W Wo Contrast (02/21/2017 6:47 PM) Narrative Performed At EXAMINATION: MRI BRAIN W WO CONTRAST RADIANT CLINICAL HISTORY: encephalopathy COMPARISON:02/17/[address]/CTA 02/20/2017 and 02/21/2017 TECHNIQUE: Multiplanar and multisequence MRI imaging of the brain was obtained with and without contrast. FINDINGS: 4 mm T1 isointense/T2 hypointense focus in the right anterior temporal lobe with corresponding susceptibility represents a small intraparenchymal hematoma, similar in appearance to the prior CTs. This l esion does not enhance or restrict diffusion. There are numerous additional cortical and subcortical foci of instability on the GRE , all of which are new from the brain MRI performed 02/15/2013. In addition, there is subtle pial susceptibility which extends along the right frontal sulcus , probably representing remote subarachnoid hemorrhage. The combination of these findings is suggestive of underlying amyloid angiopathy. There is a patchy cortical/subcortical FLAIR signal abnormalities predominantly involving the occipital and parietal lobes bilaterally. No corresponding enhancement or diffusion restriction. Although no nspecific, the distribution is suspicious for PRES. There are additional T2 FLAIR signal abnormalities involving the matter, which are nonspecific and probably chronic small vessel ischemic change. Other findings: Right frontal scalp lipoma. Generalized age-related cerebral and cerebellar volume loss. IMPRESSION: As described on the recent head CTs, patchy cortical/subcortical signal abnormalities predominantly involving the temporal and occipital lobes is suggestive of PRES. Overall, the distribution is very similar to that demonstrated on head CT performed 02/21/2017. There is no evidence of ischemia or enhancement. 4 mm right anterior temporal hematoma demonstrates no enhancement and is unlikely to represent underlying neoplasm. There is diffuse new foci of susceptibility throughout the cortical/subcortical parenc hyma with remote subarachnoid hemorrhage along the right frontal sulcus. Overall, this pattern favors underlying amyloid angiopathy. [facility]-[id number] Procedure Note Hm Interface, Radiology Results Incoming - 02/21/2017 7:07 PM CDT EXAMINATION: MRI BRAIN W WO CONTRAST CLINICAL HISTORY: encephalopathy COMPARISON: 02/17/[address]/CTA 02/20/2017 and 02/21/2017 TECHNIQUE: Multiplanar and multisequence MRI imaging of the brain was obtained with and without contrast. FINDINGS: 4 mm T1 isointense/T2 hypointense focus in the right anterior temporal lobe with corresponding susceptibility represents a small intraparenchymal hematoma, similar in appearance to the prior CTs. This lesion does not enhance or restrict diffusion. There are numerous additional cortical and subcortical foci of instability on the GRE , all of which are new from the brain MRI performed 02/15/2013. In addition, there is subtle pial susceptibility which extends along the right frontal sulcus , probably representing remote subarachnoid hemorrhage. The combination of these findings is suggestive of underlying amyloid angiopathy. There is a patchy cortical/subcortical FLAIR signal abnormalities predominantly involving the occipital and parietal lobes bilaterally. No corresponding enhancement or diffusion restriction. Although nonspecific, the distribution is suspicious for PRES. There are additional T2 FLAIR signal abnormalities involving the matter, which are nonspecific and probably chronic small vessel ischemic change. Other findings: Right frontal scalp lipoma. Generalized age-related cerebral and cerebellar volume loss. IMPRESSION: As described on the recent head CTs, patchy cortical/subcortical signal abnormalities predominantly involving the temporal and occipital lobes is suggestive of PRES. Overall, the distribution is very similar to that demonstrated on head CT performed 02/21/2017. There is no evidence of ischemia or enhancement. 4 mm right anterior temporal hematoma demonstrates no enhancement and is unlikely to represent underlying neoplasm. There is diffuse new foci of susceptibility throughout the cortical/subcortical parenchyma with remote subarachnoid hemorrhage along the right frontal sulcus. Overall, this pattern favors underlying amyloid angiopathy. [facility]-[id number] Performing Organization Address City/State/Zipcode Phone Number [facility] [address] [place] [address] CT Head Wo Contrast (02/21/2017 1:49 PM)Only the most recent of2 resultswithin the time period is included. Narrative Performed At EXAMINATION:CT HEAD WO CONTRAST AXEL CLINICAL HISTORY:CONFUSION DELERIUMALTERED LOCUNEXPLAINED COMPARISON:CT head 02/20/2017 TECHNIQUE: Noncontrast head CT performed using radiation dose reduction techniques.Technical factors are evaluated and adjusted to ensure appropriate moderation of exposure.Automated dose management technology is applied to adjust radiation exposure while achieving a diagnostic quality image. FINDINGS: No change in white matter hypoattenuation and scattered areas of loss of garcia-white matter distinction involving the left and right temporal lobes, left and right occipital lobe, and left parietal lobe. No change in small focus of hyperattenuation in the right temporal lobe. Additional patchy areas of subcortical and periventricular white matter hypoattenuation which are nonspecific appear unchanged. No midline shift. Basal cisterns are clear. Calvarium is intact. Orbits are normal in appearance. Paranasal sinuses and mastoid air cells are clear. Orbits are normal in appearance. No significant paranasal sinus mucosal thickening. Mastoid air cells are clear. IMPRESSION: 1. No definite change in extensive subcortical and patchy cortical white matter hypoattenuation involving the temporal lobes, occipital lobes, and left parietal lobe. These findings may represent evolving infarct, however scattered areas of cortical sparing somewhat atypical and raise possibility of PRES other process. Additionally, there is a small focus of hyperattenuation in the right temporal lobe, which is unchanged, however may represent small focus of parenchymal hemorrhage versus tiny hemorrhagic mass. MRI of the brain with contrast could be performed for further characterization. [facility]-[id number] Procedure Note Interface, Radiology Results Incoming - 02/21/2017 2:09 PM CDT EXAMINATION: CT HEAD WO CONTRAST CLINICAL HISTORY: CONFUSION DELERIUM ALTERED LOC UNEXPLAINED COMPARISON: CT head 02/20/2017 TECHNIQUE: Noncontrast head CT performed using radiation dose reduction techniques. Technical factors are evaluated and adjusted to ensure appropriate moderation of exposure. Automated dose management technology is applied to adjust radiation exposure while achieving a diagnostic quality image. FINDINGS: No change in white matter hypoattenuation and scattered areas of loss of garcia- white matter distinction involving the left and right temporal lobes, left and right occipital lobe, and left parietal lobe. No change in small focus of hyperattenuation in the right temporal lobe. Additional patchy areas of subcortical and periventricular white matter hypoattenuation which are nonspecific appear unchanged. No midline shift. Basal cisterns are clear. Calvarium is intact. Orbits are normal in appearance. Paranasal sinuses and mastoid air cells are clear. Orbits are normal in appearance. No significant paranasal sinus mucosal thickening. Mastoid air cells are clear. IMPRESSION: 1. No definite change in extensive subcortical and patchy cortical white matter hypoattenuation involving the temporal lobes, occipital lobes, and left parietal lobe. These findings may represent evolving infarct, however scattered areas of cortical sparing somewhat atypical and raise possibility of PRES other process. Additionally, there is a small focus of hyperattenuation in the right temporal lobe, which is unchanged, however may represent small focus of parenchymal hemorrhage versus tiny hemorrhagic mass. MRI of the brain with contrast could be performed for further characterization. [facility]-[id number] Performing Organization Address City/State/Zipcode Phone Number [facility] [address] [place] [address] ECG ED Preliminary Interpretation - NOT AN ORDER (02/21/2017 1:46 PM) Narrative Performed At [place] [facility] Jared 02/21/20171:46 PM ECG ED Preliminary Interpretation - Not an Order Performed by: VIDAL TAMAYO Authorized by: VIDAL TAMAYO ECG reviewed by ED Physician in the absence of a custom protection officer: yes Previous ECG: Previous ECG:Unavailable Interpretation: Interpretation: abnormal Rate: ECG rate:75 ECG rate assessment: normal Rhythm: Rhythm: sinus rhythm and A-V block QRS: QRS axis:Left QRS intervals:Normal Conduction: Conduction: abnormal Abnormal conduction: 1st degree ST segments: ST segments:Normal CRITICAL CARE (02/21/2017 1:46 PM) Narrative Performed At [place] [facility] Jared 02/21/20171:46 PM Critical Care Performed by: VIDAL TAMAYO Authorized by: VIDAL TAMAYO Critical care provider statement: Critical care time (minutes):45 Critical care time was exclusive of:Separately billable procedures and treating other patients Critical care was necessary to treat or prevent imminent or life-threatening deterioration of the following conditions:Respiratory failure and HEATING REPAIR TECHNICIAN failure or compromise Critical care was time spent personally by me on the following activities:Blood draw for specimens, development of treatment plan with patient or surrogate, discussions with consultants, discussions with primary provider, evaluation of patient's response to treatment, examination of patient, obtaining history from patient or surrogate, ordering and performing treatments and interventions, ordering and review of laboratory studies, ordering and review of radiographic studies, pulse oximetry, re-evaluation of patient's condition, review of old charts and ventilator management Homocystine, plasma (02/21/2017 10:14 AM) Homocysteine 8.4 0.0 - 15.0 umol/L [facility] DEPARTMENT OF Comment: PATHOLOGY AND GENOMIC The risk for coronary vascular disease increases progressively MEDICINE with homocysteine concentration.A 3.4 times greater risk is associated with a homocysteine concentration of greater than 15.8 umol/L as compared to a concentration below 14.1 umol/L. Specimen Plasma specimen Performing Organization Address City/State/Zipcode Phone Number [facility] DEPARTMENT OF PATHOLOGY AND [address] [place] [address] GENOMIC MEDICINE HIV 1, 2 antibody (02/21/2017 10:14 AM) HIV 1, 2 antibody Non-reactive Non-reactive [facility] DEPARTMENT OF Comment: PATHOLOGY AND GENOMIC Starting from September 11 2015, 4th generation HIV screening MEDICINE and confirmation assays are in use at [facility], consistent with the CDC-recommended algorithm. The screening test detects antibodies to HIV-1, HIV-2 and the p24 antigen. Positive screening results will be automatically reflexed to a HIV-1/HIV-2 differentiation assay. Indeterminant HIV-1 results will be further automatically reflexed to a nucleic acid test for detection of acute infection. Western blot will no longer be performed as a confirmation test. For a quick reference guide on the testing algorithm, please refer to: http://stacks.cdc.gov/view/cdc/59525. Specimen Blood Performing Organization Address [facility] Centercomo Phone Number [facility] DEPARTMENT OF PATHOLOGY AND [address] [place] [address] Sedimentation rate (02/21/2017 10:14 AM) Sedimentation rate 7 0 - 10 mm/hr [facility] DEPARTMENT OF PATHOLOGY AND [facility] Specimen Blood Performing Organization Address [facility] Phone Number [facility] DEPARTMENT OF PATHOLOGY AND [address] [place] [address] Rheumatoid factor (02/21/2017 10:14 AM) Rheumatoid factor <10 0 - 13 IU/mL [facility] DEPARTMENT OF PATHOLOGY AND [facility] Specimen Plasma specimen Performing Organization [facility] Phone Number [facility] DEPARTMENT OF PATHOLOGY AND [address] [place] [address] C-reactive protein (02/21/2017 10:14 AM) CRP <0.30 0.00 - 0.50 mg/dL [facility] DEPARTMENT OF PATHOLOGY AND [facility] Specimen Plasma specimen Performing Organization Address [facility] Phone Number [facility] DEPARTMENT OF PATHOLOGY AND [address] [place] [address] Thyroid stimulating hormone (02/21/2017 10:14 AM) TSH 2.58 0.27 - 4.20 uIU/mL [facility] DEPARTMENT OF PATHOLOGY AND [facility] Specimen Plasma specimen Performing Organization Address [facility] Phone Number [facility] DEPARTMENT OF PATHOLOGY AND [address] [place] [address] Vitamin B12 level (02/21/2017 10:14 AM) Vitamin B12 888 211 - 946 pg/mL [facility] DEPARTMENT OF PATHOLOGY Comment: AND [facility] Significant overlap exists between normal and deficiency states. However, most patients with deficiencies will have Serum B12 <200 pg/mL. Specimen Serum Performing Organization Address City/State/Zipcode Phone Number [facility] DEPARTMENT OF PATHOLOGY AND [address] [place] [address] GENOMIC MEDICINE Lipid panel (02/21/2017 10:14 AM) Cholesterol 162 <200 mg/dL [facility] DEPARTMENT OF PATHOLOGY AND GENOMIC MEDICINE Triglycerides 108 <150 mg/dL [facility] DEPARTMENT OF PATHOLOGY AND GENOMIC MEDICINE HDL cholesterol 63 >40 mg/dL [facility] DEPARTMENT OF PATHOLOGY AND GENOMIC MEDICINE LDL cholesterol 90Comment: Result <100 mg/dL [facility] DEPARTMENT obtained by direct LDL PATHOLOGY AND GENOMIC measurement MEDICINE Lipid panel interpretation SeeBelow [facility] DEPARTMENT OF Comment: PATHOLOGY AND GENOMIC Total Cholesterol (mg/dL) MEDICINE <200 Desirable [id number] >=240High Triglycerides (mg/dL) <150 Normal [id number] 200-499High >=500Very high HDL Cholesterol (mg/dL) <40Low (male) <40Low (female) LDL Cholesterol (mg/dL) <100 Optimal 100-129Near or above optimal [id number] 160-189High >=190Very high Risk Catergories that modify LDL goals. Risk CatergoriesLDL goal (mg/dL) CHD and CHD risk equivalent<100 (10-year risk >20%) Multiple (2+) risk factors <130 (10-year risk=<20%) 0-1 risk factors <160 (<10-year risk) Defining levels of lipids in metabolic syndrome Triglycerides>=150 mg/dL HDL Cholesterol Men<40 mg/dL Women<40 mg/dL Non-HDL cholesterol is a second target for therapy in persons with high triglycerides (>=200 mg/dL) Specimen Plasma specimen Performing Organization Address City/State/Zipcode Phone Number [facility] DEPARTMENT OF PATHOLOGY AND [address] [place] [address] [facility] Lactic acid level (02/20/2017 10:30 PM)Only the most recent of2 resultswithin the time period is included. Lactic acid 0.8 0.5 - 2.2 mmol/L [facility] DEPARTMENT OF PATHOLOGY AND GENOMIC MEDICINE Specimen Plasma specimen Performing Organization Address City/State/Zipcode Phone Number [facility] DEPARTMENT OF PATHOLOGY AND [address] [place] [address] [facility] CTA Head W Wo Contrast (02/20/2017 8:31 PM) Narrative Performed At EXAMINATION: [facility] STROKE COMPARISON:02/20/[address] TECHNIQUE:Imaging of the intracranial circulation was obtained from the skull base to the vertex during the arterial phase of enhancement. Postprocessing was performed with MIP multiplanar and 3D reconstructed images. CT scans are performed using radiation dose reduction techniques. Technical factors are evaluated and adjusted to ensure appropriate moderation of exposure. Automated dose management technology is applied to adjust radiation exposure while achieving a diagnostic quality image. FINDINGS: No hemodynamically significant stenosis is identified of the intracranial internal carotid arteries, middle cerebral arteries, anterior cerebral arteries, intracranial vertebral arteries, basilar artery or posterior cerebral arteries. There is no aneurysmal dilatation or vascular malformation of the [place]. The major dural sinuses are opacified normally. IMPRESSION: No hemodynamically significant narrowing of the [place] vessels. [facility]-[id number] Procedure Note Interface, Radiology Results [facility] - 02/20/2017 8:46 PM CDT EXAMINATION: CT ANGIOGRAM HEAD W WO CONTRAST CLINICAL HISTORY: STROKE COMPARISON: 02/20/[address] TECHNIQUE: Imaging of the intracranial circulation was obtained from the skull base to the vertex during the arterial phase of enhancement. Postprocessing was performed with MIP multiplanar and 3D reconstructed images. CT scans are performed using radiation dose reduction techniques. Technical factors are evaluated and adjusted to ensure appropriate moderation of exposure. Automated dose management technology is applied to adjust radiation exposure while achieving a diagnostic quality image. FINDINGS: No hemodynamically significant stenosis is identified of the intracranial internal carotid arteries, middle cerebral arteries, anterior cerebral arteries , intracranial vertebral arteries, basilar artery or posterior cerebral arteries. There is no aneurysmal dilatation or vascular malformation of the [place]. The major dural sinuses are opacified normally. IMPRESSION: No hemodynamically significant narrowing of the [place] vessels. [facility]-[id number] Performing Organization Address City/State/Zipcode Phone Number [facility] [phone] [place] [address] CTA Neck W Wo Contrast (02/20/2017 8:30 PM) Narrative Performed At EXAMINATION:[facility]:STROKE COMPARISON:None. TECHNIQUE: Neck CTA with multi-planar MIP and volumetric rendering (3D) after bolus intravenous iodinated contrast administration was performed. All CT images were acquired using low-dose technique with automated exposure control. FINDINGS: Normal branching anatomy of the aortic arch. No atherosclerosis or narrowing of the aortic arch or branch vessels. 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 There is normal contrast enhancement with no significant stenosis or occlusion along bilateral common, internal, and external carotid arteries. There is no significant stenosis according to the NASCET criteria (0%). There is normal contrast enhancement with no significant stenosis or occlusion along bilateral vertebral arteries. The leftvertebral artery is dominant. Centrilobular emphysema right lung and paraseptal emphysema bilateral lung apices. Severe neural foraminal stenosis right C2-3, bilateral C3-4, right C4-5, left C5-6, bilateral C6-7 secondary to uncovertebral and facet arthropathy. There is osseous fusion of the C5 and C6 vertebral bodies. There is at least mild spinal canal stenosis at C6-7 secondary to uncovertebral osteophytes. IMPRESSION: No significant cervical carotid or vertebral artery stenosis. 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 Multilevel severe neural foraminal stenosis of the cervical spine. [facility]-[id number] Procedure Note [facility], Radiology Results Incoming - 02/20/2017 8:48 PM CDT EXAMINATION: CT ANGIOGRAM NECK W WO CONTRAST CLINICAL HISTORY: STROKE COMPARISON: None. TECHNIQUE: Neck CTA with multi-planar MIP and volumetric rendering (3D) after bolus intravenous iodinated contrast administration was performed. All CT images were acquired using low-dose technique with automated exposure control. FINDINGS: Normal branching anatomy of the aortic arch. No atherosclerosis or narrowing of the aortic arch or branch vessels. 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 There is normal contrast enhancement with no significant stenosis or occlusion along bilateral common, internal, and external carotid arteries. There is no significant stenosis according to the NASCET criteria (0%). There is normal contrast enhancement with no significant stenosis or occlusion along bilateral vertebral arteries. The left vertebral artery is dominant. Centrilobular emphysema right lung and paraseptal emphysema bilateral lung apices. Severe neural foraminal stenosis right C2-3, bilateral C3-4, right C4-5 , left C5-6, bilateral C6-7 secondary to uncovertebral and facet arthropathy. There is osseous fusion of the C5 and C6 vertebral bodies. There is at least mild spinal canal stenosis at C6-7 secondary to uncovertebral osteophytes. IMPRESSION: No significant cervical carotid or vertebral artery stenosis. 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 Multilevel severe neural foraminal stenosis of the cervical spine. [facility]-[id number] Performing Organization Address [facility] Phone Number [facility] [address] [place] [address] Arterial blood gas (02/20/2017 4:25 PM) pH, arterial 7.41 7.35 - 7.45 [facility] DEPARTMENT OF PATHOLOGY AND GENOMIC MEDICINE pCO2, arterial 43 35 - 45 mmHg [facility]OLOGY [facility] GENOMIC MEDICINE pO2, arterial 112 (H) 80 - 90 mmHg [facility] OF [facility]OLOGY [facility] GENOMIC MEDICINE Bicarbonate, arterial 26.7 21.0 - 28.0 mmol/L [facility] OF PATHOLOGY [facility] GENOMIC MEDICINE Base excess, arterial 2 -2 - 2 mEq/L [facility] DEPARTMENT OF PATHOLOGY AND GENOMIC MEDICINE O2 saturation, arterial 97 95 - 100 % [facility] DEPARTMENT OF PATHOLOGY AND GENOMIC MEDICINE Specimen Blood Performing Organization Address [facility] Phone Number [facility] DEPARTMENT OF PATHOLOGY AND [address] [place] [address] [facility] ECG 12 lead (02/20/2017 3:23 PM) Ventricular rate 75 [facility] MUSE Atrial rate 75 [facility] MUSE NE interval 226 [facility] MUSE QRSD interval 88 [facility] MUSE QT interval 366 [facility] M[facility] QTC interval 408 [facility] MUSE P axis 1 59 [facility] MUSE QRS axis 1 -31 [facility] M[facility] T wave axis -17 [facility] MUSE EKG impression Sinus rhythm with 1st degree AV block-Left axis deviation- Nonspecific ST and T wave abnormality-Abnormal ECG-In automated comparison with ECG of 15-SEP-2016 15:57,-NE interval has increased- [facility] MUSE 5:05:51 PM Performing Organization Address [facility] Cent[facility]ode Phone Number [facility] MUSE [address] [place] [address] Partial thromboplastin time, activated (02/20/2017 3:06 PM) PTT 28.6 23.0 - 36.0 sec [facility] DEPARTMENT OF PATHOLOGY Comment: AND GENOMIC MEDICINE PTT therapeutic range for unfractionated heparin is 61.0-112.0 seconds which corresponds to Anti-Xa 0.3-0.7 U/ml. Specimen Blood Performing Organization Address City/[facility]/Zipcode Phone Number [facility] DEPARTMENT OF PATHOLOGY AND [address] [place] [phone] [facility] Prothrombin time with INR (02/20/2017 3:06 PM) Prothrombin time 15.6 (H) 12.0 - 15.0 sec [facility] DEPARTMENT OF PATHOLOGY AND GENOMIC MEDICINE INR 1.2 [facility] DEPARTMENT OF Comment: PATHOLOGY AND GENOMIC The International Normalized Ratio (INR) is a therapeutic MEDICINE monitoring tool for patients who are stable on oral anticoagulant therapy. An INR of 2.0-3.0 is suggested for deep vein thrombosis/pulmonary embolism. Specimen Blood Performing Organization Address [facility] Cent[facility]ode Phone Number [facility] DEPARTMENT OF PATHOLOGY AND [address] [place] [phone] [facility] Creatine kinase, total (CPK) (02/20/2017 3:06 PM) Creatine kinase 224 39 - 308 U/L [facility] DEPARTMENT OF PATHOLOGY AND GENOMIC MEDICINE Specimen Plasma specimen Performing Organization Address City/[facility] Centercode Phone Number [facility] DEPARTMENT OF PATHOLOGY AND [address] [place] [phone] GENOMIC MEDICINE after 01/07/2017 Insurance Payer Benefit Plan / Group Subscriber ID Type Phone Address MEDICARE MEDICARE PART A AND B xxxxxxxxxx Medicare [place], [place] [employer] xxxxxx-xx Commercial Home: [address] [facility] [facility] [place] [phone] [address]
[2018-01-08] MEDS ORDERED: NA CHLORIDE 0.9% 1,000 ML ONE (02:03)
[2018-01-08] MEDS ORDERED: FENTANYL CITR 100 MCG/2 ML ONE (02:03)
[2018-01-08] MEDS ORDERED: NA CHLORIDE 0.9% 250 ML ONE (02:03)
[2018-01-08] MEDS ORDERED: DIAZEPAM 10 MG/2 ML INJ SYRINGE ONE (02:07)
[2018-01-08 02:09] LABS: Absolute Monocytes 0.9 K/uL (0.1-1.3); Absolute Neutrophil 9.3 K/uL (1.8-8.0); Basophils % 0.4 % (0-1.3); Eosinophils % 3.1 % (0-4.4); Hematocrit 36.2 % (39.6-49.0); Lymphocytes % 8.9 % (15.3-44.8); MCH 32.4 pg (27.0-35.0); MCV 96.1 fL (80-100); MPV 9.3 fL (7.6-11.3); RBC Red Blood Cell Count 3.76 M/uL (4.33-5.43)
[2018-01-08 02:21] LABS: BUN Blood Urea Nitrogen 36 mg/dL (7-18); Bicarbonate 27 mmol/L (21-32); Glucose Level 116 mg/dL (74-106); Potassium 3.9 mmol/L (3.5-5.1); Sodium Level 145 mmol/L (136-145)
--- NOTE | 2018-01-08 02:53 | ER ---
Nurse's Notes [facility] Name: Charles Ramírez Age: 72 yrs Sex: Male : 1945 Arrival Date: 01/08/2018 Time: : Bed 14 Private MD: Kenton Petersen Diagnosis: Low back pain Presentation: 01/08 01:27 Presenting complaint: EMS states: Pt has ALS and is c/o back spasms which are new to tl2 him. Pt has intermittent spasms. Denies any other complaint. Transition of care: patient was not received from another setting of care. Onset of symptoms was January 07, 2018 at 23:00. Risk Assessment: Do you want to hurt yourself or someone else? Patient reports no desire to harm self or others. Initial Sepsis Screen: Does the patient meet any 2 criteria? No. Patient's initial sepsis screen is negative. Does the patient have a suspected source of infection? No. Patient's initial sepsis screen is negative. Care prior to arrival: None. :27 Method Of Arrival: EMS tl2 01:27 Acuity: NANI 4 tl2 Triage Assessment: :28 General: Appears in no apparent distress. uncomfortable, Behavior is cooperative, tl2 appropriate for age, anxious. Pain: Complains of pain in left low back and right low back Pain currently is 8 out of 10 on a pain scale. Quality of pain is described as sharp, Is intermittent. Historical: - Allergies: : No Known Allergies; tl2 - PMHx: : ALS; High Cholesterol; Hypertension; tl2 - Immunization history:: Adult Immunizations up to date. - Social history:: Smoking status: Patient/guardian denies using tobacco. - Ebola Screening: : No symptoms or risks identified at this time. Screenin:30 Abuse screen: Denies threats or abuse. Nutritional screening: No deficits noted. tl2 Tuberculosis screening: No symptoms or risk factors identified. Fall Risk Secondary diagnosis (15 points) ALS. Assessment: 01:50 General: Appears uncomfortable, Behavior is calm, cooperative. Pain: Complains of pain jd3 in back Quality of pain is described as sharp, squeezing. Neuro: Level of Consciousness is awake, alert, Oriented to person, place, time, situation, Appropriate for age. Cardiovascular: Capillary refill < 3 seconds Patient's skin is warm and dry. Respiratory: Airway is patent Respiratory effort is even, unlabored, Respiratory pattern is regular, symmetrical. GI: No signs and/or symptoms were reported involving the gastrointestinal system. : No signs and/or symptoms were reported regarding the genitourinary system. EENT: No signs and/or symptoms were reported regarding the EENT system. Derm: No signs and/or symptoms reported regarding the dermatologic system. Musculoskeletal: Range of motion: limited in all extremities. 02:28 Reassessment: Patient appears in no apparent distress at this time. Patient and/or jd3 family updated on plan of care and expected duration. Pain level reassessed. Patient is alert, oriented x 3, equal unlabored respirations, skin warm/dry/pink. 03:14 Reassessment: Patient appears in no apparent distress at this time. Patient and/or jd3 family updated on plan of care and expected duration. Pain level reassessed. Patient is alert, oriented x 3, equal unlabored respirations, skin warm/dry/pink. pt and family reported understanding of discharge instructions. waiting on ambulance for transfer home. Patient states feeling better. 03:23 Reassessment: report given to EMS. jd3 Vital Signs: 01:28 BP 144 / 90; Pulse 91; Resp 20; Temp 98.3(O); Pulse Ox 95% on R/A; Weight 72.57 kg; tl2 Height 5 ft. 10 in. (177.80 cm); Pain 8/10; 02:27 BP 100 / 64; Pulse 78; Resp 19 S; Pulse Ox 94% on 2 lpm NC; jd3 03:15 BP 119 / 75; Pulse 84; Resp 17 S; Pulse Ox 94% on R/A; jd3 01:28 Body Mass Index 22.96 (72.57 kg, 177.80 cm) tl2 ED Course: 01:27 Patient arrived in ED. tl2 01:28 Triage completed. tl2 01:28 Arm band placed on right wrist. tl2 01:30 Patient has correct armband on for positive identification. Bed in low position. Call tl2 light in reach. Side rails up X2. Adult w/ patient. 01:34 Rohan Mann PA is PHCP. cp 01:34 Nnamdi Lambert MD is Attending Physician. cp 01:45 Juan Terry RN is Primary Nurse. jd3 01:59 Kenton Petersen MD is Private Physician. ds1 02:13 Inserted saline lock: 20 gauge in left antecubital area, using aseptic technique. Blood jd3 collected. 02:35 Straight cath inserted, using sterile technique, 16 Fr. Specimen obtained. jd3 02:52 No provider procedures requiring assistance completed. jd3 03:14 IV discontinued, intact, bleeding controlled, No redness/swelling at site. Pressure jd3 dressing applied. Administered Medications: 02:19 Drug: fentaNYL (PF) 25 mcg Route: IVP; Site: left antecubital; jd3 02:54 Follow up: Response: No adverse reaction jd3 02:20 Drug: Diazepam 2 mg Route: IVP; Site: left antecubital; jd3 02:54 Follow up: Response: No adverse reaction jd3 02:22 Drug: NS 0.9% 250 ml Route: IV; Rate: bolus; Site: left antecubital; jd3 03:16 Follow up: Response: No adverse reaction; IV Status: Completed infusion; IV Intake: jd3 250ml 02:22 Drug: NS 0.9% 1000 ml Route: IV; Rate: 75 ml/hr; Site: left antecubital; jd3 03:16 Follow up: Response: No adverse reaction; IV Status: Order to discontinue infusion; IV jd3 Intake: 75ml Intake: 03:16 IV: 250ml; Total: 250ml. jd3 03:16 IV: 75ml; Total: 325ml. jd3 Outcome: 02:53 Discharge ordered by MD. cp 03:14 Discharged to home via ambulance, with family. jd3 03:14 Condition: stable 03:14 Discharge instructions given to patient, family, Instructed on discharge instructions, follow up and referral plans. medication usage, Demonstrated understanding of instructions, follow-up care, medications, Prescriptions given X 1. 03:24 Patient left the ED. jd3 Signatures: Alyssa Lindsey ds1 Rohan Mann PA PA cp Phoebe Smith RN RN tl2 Juan Terry RN RN jd3 Corrections: (The following items were deleted from the chart) 03:17 03:14 Reassessment: Patient appears in no apparent distress at this time. Patient jd3 and/or family updated on plan of care and expected duration. Pain level reassessed. Patient is alert, oriented x 3, equal unlabored respirations, skin warm/dry/pink. pt and family reported understanding of discharge instructions. waiting on ambulance for transfer home. jd3
--- NOTE | 2018-01-08 02:53 | EDPHYS ---
Physician Documentation [facility] Name: Charles Ramírez Age: 72 yrs Sex: Male : 1945 Arrival Date: 01/08/2018 Time: 01:27 Bed 14 Private MD: Kenton Petersen ED Physician Nnamdi Lambert HPI: 01/08 01:41 This 72 yrs old Male presents to ER via EMS with complaints of Back Spasms. cp 01:41 The patient presents with pain that is acute, with no known mechanism of injury, and cp spasm. 01:41 The symptoms are located in the low back. Onset: The symptoms/episode began/occurred cp tonight. The pain does not radiate. Associated signs and symptoms: Pertinent negatives: abdominal pain, chest pain, constipation, dysuria, fever, incontinence, numbness, vomiting. Severity of symptoms: in the emergency department the symptoms are unchanged, despite home interventions. Historical: - Allergies: 01:28 No Known Allergies; tl2 - PMHx: 01:28 ALS; High Cholesterol; Hypertension; tl2 - Immunization history:: Adult Immunizations up to date. - Social history:: Smoking status: Patient/guardian denies using tobacco. - Ebola Screening: : No symptoms or risks identified at this time. ROS: 01:45 Constitutional: Negative for body aches, chills, fever, poor PO intake. cp 01:45 Eyes: Negative for injury, pain, redness, and discharge. cp 01:45 ENT: Negative for drainage from ear(s), ear pain, sore throat, difficulty swallowing, difficulty handling secretions. 01:45 Cardiovascular: Negative for chest pain, edema, palpitations. 01:45 Respiratory: Negative for cough, shortness of breath, wheezing. 01:45 Abdomen/GI: Negative for abdominal pain, nausea, vomiting, and diarrhea. 01:45 Back: Positive for pain at rest, of the low back, Negative for radiated pain. 01:45 : Negative for urinary symptoms, pelvic pain, penile pain. 01:45 MS/extremity: Negative for paresthesias. 01:45 Skin: Negative for cellulitis, rash. 01:45 Neuro: Negative for altered mental status, headache. 01:45 All other systems are negative. Exam: 01:50 Constitutional: The patient appears in no acute distress, alert, awake, cp non-diaphoretic, non-toxic, well developed, well nourished, uncomfortable. 01:50 Head/Face: Normocephalic, atraumatic. cp 01:50 Eyes: Periorbital structures: appear normal, Pupils: equal, round, and reactive to light and accomodation, Conjunctiva: normal, no exudate, no injection, Sclera: no appreciated abnormality, Lids and lashes: appear normal, bilaterally. 01:50 ENT: External ear(s): are unremarkable, Nose: is normal, Mouth: Lips: moist, Oral mucosa: moist, Posterior pharynx: is normal, airway is patent, no erythema, no exudate. 01:50 Neck: ROM/movement: Meningeal signs: are not present, nuchal rigidity, is not appreciated. 01:50 Chest/axilla: Inspection: normal, Palpation: is normal, no crepitus, no tenderness. 01:50 Cardiovascular: Rate: normal, Rhythm: regular. 01:50 Respiratory: the patient does not display signs of respiratory distress, Respirations: normal, no use of accessory muscles, no retractions, no splinting, no tachypnea, labored breathing, is not present, Breath sounds: are clear throughout, no decreased breath sounds, no stridor, no wheezing. 01:50 Abdomen/GI: Inspection: abdomen appears normal, Bowel sounds: active, all quadrants, Palpation: abdomen is soft and non-tender, in all quadrants. 01:50 Back: pain, that is moderate, of the low back area, ROM is painful, Straight leg raises: pain bilaterally. 01:50 Skin: cellulitis, is not appreciated, no rash present. 01:50 Neuro: Orientation: no acute changes, per family, Mentation: able to follow commands, slow to respond, Motor: moves all fours, Sensation: no acute changes. Vital Signs: 01:28 BP 144 / 90; Pulse 91; Resp 20; Temp 98.3(O); Pulse Ox 95% on R/A; Weight 72.57 kg; tl2 Height 5 ft. 10 in. (177.80 cm); Pain 8/10; 02:27 BP 100 / 64; Pulse 78; Resp 19 S; Pulse Ox 94% on 2 lpm NC; jd3 03:15 BP 119 / 75; Pulse 84; Resp 17 S; Pulse Ox 94% on R/A; jd3 01:28 Body Mass Index 22.96 (72.57 kg, 177.80 cm) tl2 MDM: 01:34 Patient medically screened. cp 02:00 Differential diagnosis: Pyelonephritis ruptured disc, Ureterolithiasis muscle spasm. cp 02:52 Data reviewed: vital signs, nurses notes, lab test result(s), and as a result, I will cp discharge patient. 02:52 Counseling: I had a detailed discussion with the patient and/or guardian regarding: the cp historical points, exam findings, and any diagnostic results supporting the discharge/admit diagnosis, lab results, to return to the emergency department if symptoms worsen or persist or if there are any questions or concerns that arise at home. Response to treatment: the patient's symptoms have markedly improved after treatment, and as a result, I will discharge patient. 01/08 01:43 Order name: BMP; Complete Time: 02:22 cp 01/08 02:22 Interpretation: Normal except: CL 111; GLUC 116; BUN 36. cp 01/08 01:43 Order name: Magnesium; Complete Time: 02:22 cp 01/08 01:43 Order name: CBC with Diff; Complete Time: 02:22 cp 01/08 02:22 Interpretation: Normal except: WBC 11.7; RBC 3.76; HGB 12.2; HCT 36.2; MAGNOLIA% 79.6; LYM% cp 8.9; NEUT A 9.3. 01/08 01:43 Order name: Urine Microscopic Only 01/08 02:53 Order name: Urine Dipstick--Ancillary (enter results) jw5 01/08 01:43 Order name: Urine Dipstick-Ancillary (obtain specimen); Complete Time: 02:47 cp Administered Medications: 02:19 Drug: fentaNYL (PF) 25 mcg Route: IVP; Site: left antecubital; jd3 02:54 Follow up: Response: No adverse reaction jd3 02:20 Drug: Diazepam 2 mg Route: IVP; Site: left antecubital; jd3 02:54 Follow up: Response: No adverse reaction jd3 02:22 Drug: NS 0.9% 250 ml Route: IV; Rate: bolus; Site: left antecubital; jd3 03:16 Follow up: Response: No adverse reaction; IV Status: Completed infusion; IV Intake: jd3 250ml 02:22 Drug: NS 0.9% 1000 ml Route: IV; Rate: 75 ml/hr; Site: left antecubital; jd3 03:16 Follow up: Response: No adverse reaction; IV Status: Order to discontinue infusion; IV jd3 Intake: 75ml Disposition: 01/08/18 02:53 Discharged to Home. Impression: Low back pain. - Condition is Stable. - Discharge Instructions: Back Pain, Adult. - Prescriptions for Baclofen 10 mg Oral Tablet - take 1 tablet by ORAL route 3 times per day; 20 tablet. - Medication Reconciliation Form, Thank You Letter, Antibiotic Education, Prescription Opioid Use, SBAR form form. - Follow up: Private Physician; When: 2 - 3 days; Reason: Recheck today's complaints. - Problem is new. - Symptoms have improved. Addendum: 01/12/2018 20:25 Co-signature as Attending Physician, Nnamdi Lambert MD I agree with the assessment and w a plan of care. Signatures: Dispatcher [employer] EDOR Rohan Mann PA PA cp Knox, Taylor RN RN tl2 Nnamdi Lambert MD MD wa Davies, Jonathon, RN RN jd3 Corrections: (The following items were deleted from the chart) 01/08 03:24 02:53 01/08/2018 02:53 Discharged to Home. Impression: Low back pain. Condition is jd3 Stable. Forms are Medication Reconciliation Form, Thank You Letter, Antibiotic Education, Prescription Opioid Use. Follow up: Private Physician; When: 2 - 3 days; Reason: Recheck today's complaints. Problem is new. Symptoms have improved. cp
[2018-01-08 03:30] VITALS: TEMP 98.3
[2018-01-08 03:31] VITALS: O2SAT 94
[2018-01-08 03:32] VITALS: BP 119/75
[2018-01-08 04:55] LABS: Urine Blood NEGATIVE (NEG); Urine Glucose NEGATIVE (NEG); Urine Protein NEGATIVE (NEG); Urine Specific Gravity 1.025 (1.005-1.030)
[2018-01-08 04:56] LABS: Urine Bacteria <20 /HPF (NONE SEEN); Urine Culture Reflex Order NOT NEEDED
== END 2018-01-08 03:24 | disposition home or self-care (01) ==
LOC: ER 01:25
DX: M54.5 Low back pain (principal); G12.21 Amyotrophic lateral sclerosis; E78.00 Pure hypercholesterolemia, unspecified; I10 Essential (primary) hypertension
CPT/HCPCS: 36415; 51702; 80048; 83735; 85025; 96365; 96375; 99284; J3010; J3360; J7030; 81003; 81015; 96361; 96374